=== PATIENT | female | born 1950 | race Caucasian/White ===

== ENCOUNTER 2017-10-08 10:15 | Emergency (ER) | payer MEDICARE, OTHER ==
[~2017-10-08] VITALS: Ht 162.6 cm; Wt 68.5 kg
[~2017-10-08 10:15] MED LIST: ALBUTEROL; AMIT50 PO; ASPI81EC PO; ATOR20 PO; Albuterol2.5 MG/0.5 INH; Aspirin EC81 MG PO; BENTYL20 MG PO; BENZ100A PO; BUDE.25; BUDE.5 NEB; CHOL10002 PO; CIPR500 PO; CLARITIN10 MG PO; CLOP75 PO; CREON DR 6,0001 EACH; CREON DR 6,0001 EACH PO; ERGO400 PO; FAMO20 PO; FLAV100 PO; GABA300 PO; GUAIFENESIN1200 MG PO; HYDR1TAB94 PO; IPRA.03NI; Ipratr-Albuterol3 ML IH; LEVSOD125 PO; LEVSOD150; LEVSOD150 PO; LORA10ER PO; MAGNESIUM; METO25 PO; METO25ER PO; METPHE20CR; MIRT15ST MM; MIRT30 PO; MODA200 PO; Magnesium Oxid500 MG PO; NITR.4SL SL; NITR.6SL; NYST100000; Nitrostat0.4 MG SL; Norco 5-325 Ta1 EACH PO; ONDA4 PO; ONDA4ODT; OXYB5 PO; OXYC10TA19 PO; OXYC5 PO; Omeprazole20 M1; PHENA200 PO; POTA10T PO; POTCHL10ER PO; PRAV20 PO; PRED10 PO; PRED20; PROM25 PO; PROM25S PR; Pravachol PO; Prednisone20 MG PO; Prilosec20 MG PO; Provigil PO; QVAR7.3 G1 IH; SYNTHROID0.2 MG PO; TIOT18 INH; TOPI50 PO; TRAM50 PO; Tussionex Penn480 ML PO; WARF5 PO
[2017-10-08 11:59] LABS: BASOPHILS ABSOLUTE AUTO 0.04 K/mm3 (0.00-0.23); BASOPHILS PERCENT AUTO 1 % (0-2); EOSINOPHILS ABSOLUTE AUTO 0.33 K/mm3 (0.00-0.68); EOSINOPHILS PERCENT AUTO 4 % (0-6); Hematocrit 44.2 % (33.0-51.0); Hemoglobin 13.8 g/dL (11.5-16.0); IMMATURE GRAN ABSOLUTE AUTO 0.01 K/mm3 (0.00-0.10); IMMATURE GRAN PERCENT AUTO 0 % (0-1); LYMPHOCYTES ABSOLUTE AUTO 2.34 K/mm3 (0.84-5.20); LYMPHOCYTES PERCENT AUTO 30 % (21-46); MONOCYTES ABSOLUTE AUTO 0.57 K/mm3 (0.16-1.47); MONOCYTES PERCENT AUTO 7 % (4-13); Mean Corpuscular HGB 29.8 pg (26.0-34.0); Mean Corpuscular HGB Conc 31.2 g/dL (31.5-36.5); Mean Corpuscular Volume 96 fL (80-100); Mean Platelet Volume 10.5 fL (9.1-12.4); NEUTROPHILS ABSOLUTE AUTO 4.56 K/mm3 (1.96-9.15); NEUTROPHILS PERCENT AUTO 58 % (41-73); Platelet Count 300 K/mm3 (150-400); RDW Coefficient Variation 13.8 % (11.7-14.2); RDW Standard Deviation 47.7 fL (35.1-46.3); Red Blood Cell Count 4.63 M/mm3 (3.80-5.20); White Blood Cell Count 7.85 K/mm3 (4.00-11.30)
[2017-10-08 12:10] LABS: Albumin, Blood 3.7 g/dL (3.4-5.0); Bilirubin, Total 0.3 mg/dL (0.1-1.0); Bun/Creatinine Ratio 17.6 (12.0-20.0); Calcium, Blood 8.7 mg/dL (8.5-10.1); Creatinine, Blood 1.02 mg/dL (0.40-1.00); Globulin, Blood 3.6 g/dL (2.2-4.0); Total Protein, Blood 7.3 g/dL (6.4-8.2)
[2018-07-16] MEDS ORDERED: IMDUR (15:31)
[2018-07-22] MEDS ORDERED: CEFU500T30 PO (12:22)
[2018-07-22] MEDS ORDERED: DOCU100 PO (12:23)
[2018-07-22] MEDS ORDERED: Fish Oil 10001000 MG PO (12:27)
[2018-07-22] MEDS ORDERED: ISOMON20 PO (12:28)
[2018-07-22] MEDS ORDERED: LACTOBACILLUS PO (12:30)
[2018-07-22] MEDS ORDERED: LEVSOD100 PO (12:32)
[2018-07-22] MEDS ORDERED: METO25ER PO (12:33)
[2018-07-22] MEDS ORDERED: PANT40 PO (12:36)
== END 2017-10-08 13:16 | disposition home or self-care (01) ==
LOC: ER 10:15
PROVIDERS: Physician Assistant
DX: Z03.89 Encounter for observation for other suspected diseases and conditions ruled out (principal); Z86.73 Personal history of transient ischemic attack (TIA), and cerebral infarction without residual deficits; Z88.5 Allergy status to narcotic agent; Z88.2 Allergy status to sulfonamides; Z88.8 Allergy status to other drugs, medicaments and biological substances; Z79.899 Other long term (current) drug therapy; Z79.82 Long term (current) use of aspirin; Z79.891 Long term (current) use of opiate analgesic; Z79.52 Long term (current) use of systemic steroids; J44.9 Chronic obstructive pulmonary disease, unspecified; E03.9 Hypothyroidism, unspecified
CPT/HCPCS: 36415; 70450; 80053; 84100; 84439; 84443; 85025; 93005; 93010; 99284

== ENCOUNTER 2017-10-18 10:50 | Emergency (ER) | payer MEDICARE, OTHER ==
[~2017-10-18] VITALS: Ht 162.6 cm; Wt 68.5 kg
[2017-10-18 11:30] LABS: BASOPHILS ABSOLUTE AUTO 0.07 K/mm3 (0.00-0.23); BASOPHILS PERCENT AUTO 1 % (0-2); EOSINOPHILS ABSOLUTE AUTO 0.36 K/mm3 (0.00-0.68); EOSINOPHILS PERCENT AUTO 5 % (0-6); Hematocrit 41.7 % (33.0-51.0); IMMATURE GRAN ABSOLUTE AUTO 0.03 K/mm3 (0.00-0.10); IMMATURE GRAN PERCENT AUTO 0 % (0-1); LYMPHOCYTES ABSOLUTE AUTO 1.89 K/mm3 (0.84-5.20); LYMPHOCYTES PERCENT AUTO 26 % (21-46); MONOCYTES ABSOLUTE AUTO 0.56 K/mm3 (0.16-1.47); MONOCYTES PERCENT AUTO 8 % (4-13); Mean Corpuscular HGB 29.5 pg (26.0-34.0); Mean Corpuscular HGB Conc 31.2 g/dL (31.5-36.5); Mean Corpuscular Volume 95 fL (80-100); Mean Platelet Volume 10.3 fL (9.1-12.4); NEUTROPHILS PERCENT AUTO 60 % (41-73); Platelet Count 245 K/mm3 (150-400); RDW Coefficient Variation 13.1 % (11.7-14.2); RDW Standard Deviation 45.4 fL (35.1-46.3); Red Blood Cell Count 4.41 M/mm3 (3.80-5.20); White Blood Cell Count 7.31 K/mm3 (4.00-11.30)
[2017-10-18 11:46] LABS: Alanine Aminotransfer (ALT/SGP 16 U/L (12-78); Albumin, Blood 3.5 g/dL (3.4-5.0); Alk Phos 116 U/L (50-136); Anion Gap 7 mmol/L (6-16); Aspartate Aminotrans (AST/SGOT 11 U/L (12-37); Bilirubin, Total 0.2 mg/dL (0.1-1.0); Blood Urea Nitrogen 20 mg/dL (8-24); Bun/Creatinine Ratio 21.2 (12.0-20.0); CO2, Blood 26 mmol/L (21-32); Calcium, Blood 8.6 mg/dL (8.5-10.1); Chloride, Blood 113 mmol/L (98-108); Creatinine, Blood 0.95 mg/dL (0.40-1.00); Globulin, Blood 3.5 g/dL (2.2-4.0); Glomerular Filtration Rate >60 (60-); Glucose, Blood 88 mg/dL (70-99); Potassium, Blood 3.4 mmol/L (3.5-5.5); Sodium, Blood 146 mmol/L (136-145)
[2017-10-18 13:53] LABS: Troponin I <0.015 ng/mL (0.000-0.040)
[2018-07-16] MEDS ORDERED: IMDUR (15:31)
[2018-07-22] MEDS ORDERED: CEFU500T30 PO (12:22)
[2018-07-22] MEDS ORDERED: DOCU100 PO (12:23)
[2018-07-22] MEDS ORDERED: Fish Oil 10001000 MG PO (12:27)
[2018-07-22] MEDS ORDERED: ISOMON20 PO (12:28)
[2018-07-22] MEDS ORDERED: LACTOBACILLUS PO (12:30)
[2018-07-22] MEDS ORDERED: LEVSOD100 PO (12:32)
[2018-07-22] MEDS ORDERED: METO25ER PO (12:33)
[2018-07-22] MEDS ORDERED: PANT40 PO (12:36)
== END 2017-10-18 14:59 | disposition home or self-care (01) ==
LOC: ER 10:50
PROVIDERS: Emergency Medicine
DX: R42 Dizziness and giddiness (principal); J44.9 Chronic obstructive pulmonary disease, unspecified; E03.9 Hypothyroidism, unspecified; Z88.5 Allergy status to narcotic agent; Z88.2 Allergy status to sulfonamides; Z88.8 Allergy status to other drugs, medicaments and biological substances; Z79.899 Other long term (current) drug therapy; Z79.82 Long term (current) use of aspirin; Z79.52 Long term (current) use of systemic steroids; Z95.5 Presence of coronary angioplasty implant and graft; Z95.1 Presence of aortocoronary bypass graft; Z90.710 Acquired absence of both cervix and uterus; Z90.49 Acquired absence of other specified parts of digestive tract; Z90.89 Acquired absence of other organs
CPT/HCPCS: 36415; 80053; 83690; 84484; 85025; 93005; 93010; 99283

== ENCOUNTER 2018-01-17 20:50 | Emergency (ER) | payer MEDICARE, OTHER ==
[~2018-01-17] VITALS: Ht 162.6 cm; Wt 68.0 kg
[~2018-01-17 20:50] MED LIST changes: -BUDE.25
[2018-01-17 21:03] LABS: BASOPHILS ABSOLUTE AUTO 0.05 K/mm3 (0.00-0.23); BASOPHILS PERCENT AUTO 1 % (0-2); EOSINOPHILS ABSOLUTE AUTO 0.26 K/mm3 (0.00-0.68); EOSINOPHILS PERCENT AUTO 3 % (0-6); Hematocrit 41.1 % (33.0-51.0); Hemoglobin 12.8 g/dL (11.5-16.0); IMMATURE GRAN ABSOLUTE AUTO 0.03 K/mm3 (0.00-0.10); IMMATURE GRAN PERCENT AUTO 0 % (0-1); LYMPHOCYTES ABSOLUTE AUTO 2.17 K/mm3 (0.84-5.20); LYMPHOCYTES PERCENT AUTO 23 % (21-46); MONOCYTES ABSOLUTE AUTO 0.59 K/mm3 (0.16-1.47); MONOCYTES PERCENT AUTO 6 % (4-13); Mean Corpuscular HGB Conc 31.1 g/dL (31.5-36.5); Mean Corpuscular Volume 93 fL (80-100); Mean Platelet Volume 9.8 fL (9.1-12.4); NEUTROPHILS ABSOLUTE AUTO 6.46 K/mm3 (1.96-9.15); NEUTROPHILS PERCENT AUTO 68 % (41-73); Platelet Count 325 K/mm3 (150-400); RDW Coefficient Variation 13.5 % (11.7-14.2); RDW Standard Deviation 46.3 fL (35.1-46.3); Red Blood Cell Count 4.41 M/mm3 (3.80-5.20); White Blood Cell Count 9.56 K/mm3 (4.00-11.30)
[2018-01-17 21:17] LABS: International Normalized Ratio 0.98; Prothrombin Time Results 10.2 Sec (9.7-11.5)
[2018-01-17 21:21] LABS: Alanine Aminotransfer (ALT/SGP 13 U/L (12-78); Albumin, Blood 3.5 g/dL (3.4-5.0); Albumin/Globulin Ratio 0.9 (0.8-1.8); Alk Phos 96 U/L (50-136); Anion Gap 9 mmol/L (6-16); Aspartate Aminotrans (AST/SGOT 12 U/L (12-37); Bilirubin, Total 0.4 mg/dL (0.1-1.0); Blood Urea Nitrogen 16 mg/dL (8-24); Bun/Creatinine Ratio 18.6 (12.0-20.0); CO2, Blood 20 mmol/L (21-32); Calcium, Blood 7.6 mg/dL (8.5-10.1); Chloride, Blood 121 mmol/L (98-108); Creatinine, Blood 0.86 mg/dL (0.40-1.00); Ethanol (Alcohol), Blood, Med <3 mg/dL; Globulin, Blood 3.9 g/dL (2.2-4.0); Glomerular Filtration Rate >60 (60-); Glucose, Blood 124 mg/dL (70-99); Potassium, Blood 3.5 mmol/L (3.5-5.5); Sodium, Blood 150 mmol/L (136-145); Total Protein, Blood 7.4 g/dL (6.4-8.2)
[2018-01-17 22:55] LABS: Source, Urine Clean Catch
[2018-01-17 22:57] LABS: Blood, Urine Neg (Neg); Glucose Qualitative, Urine Neg (Neg); Ketones, Urine Neg (Neg); Leukocyte Esterase, Urine Neg (Neg); Nitrite, Urine Pos (Neg); Protein, Urine 1+ (Neg); Specific Gravity, Urine 1.015 (1.003-1.022); Urobilinogen, Urine 3+ (Normal)
[2018-01-17 23:02] LABS: Appearance, Urine Clear (Clear); Bilirubin, Urine 3+ (Neg); Color, Urine Orange (P-Yellow)
[2018-01-17 23:03] LABS: Bacteria Many /hpf; Red Blood Cells, Urine 0-2 /hpf (0-2); Squamous Epithelial Cells Not Seen /hpf (Few)
[2018-01-17 23:46] LABS: U Amphetamine Screen Not Detected; U Barbituate Screen Not Detected; U Benzodiazapine Screen Not Detected; U Buprenorphine Screen Not Detected; U Cannabinoids Screen Not Detected; U Cocaine Screen Not Detected; U Methadone Screen Not Detected; U Methamphetamine Screen Not Detected; U Opiates Screen Not Detected; U Oxycodone Screen Not Detected; U Phencyclidine Screen Not Detected; U Propoxyphene Screen Not Detected
== END 2018-01-18 02:10 | disposition short-term general hospital (02) ==
LOC: ER 20:50
PROVIDERS: Emergency Medicine
DX: S06.5X9A Traumatic subdural hemorrhage with loss of consciousness of unspecified duration, initial encounter (principal); S06.6X9A Traumatic subarachnoid hemorrhage with loss of consciousness of unspecified duration, initial encounter; S61.412A Laceration without foreign body of left hand, initial encounter; S01.01XA Laceration without foreign body of scalp, initial encounter; S80.212A Abrasion, left knee, initial encounter; S00.81XA Abrasion of other part of head, initial encounter; J44.9 Chronic obstructive pulmonary disease, unspecified; E03.9 Hypothyroidism, unspecified; Z88.5 Allergy status to narcotic agent; Z88.2 Allergy status to sulfonamides; Z88.8 Allergy status to other drugs, medicaments and biological substances; Z79.899 Other long term (current) drug therapy; Z79.82 Long term (current) use of aspirin; Z79.52 Long term (current) use of systemic steroids; W55.12XA Struck by horse, initial encounter
CPT/HCPCS: 12002; 36430; 70450; 71045; 71260; 72125; 72170; 73080; 73130; 73562-LT; 74177; 80053; 81001; 83690; 85025; 85610; 85730; 86850; 86900; 86901; 90714; 96361; 96374; 96375; 96376; 99285; G0480; J2405; J3010; J7030; P9035; Q9967

== ENCOUNTER 2018-02-21 12:07 | Emergency (ER) | payer MEDICARE, OTHER ==
[~2018-02-21] VITALS: Ht 162.6 cm; Wt 68.0 kg
== END 2018-02-21 14:30 | disposition home or self-care (01) ==
LOC: ER 12:07
DX: S52.501D Unspecified fracture of the lower end of right radius, subsequent encounter for closed fracture with routine healing (principal); J44.9 Chronic obstructive pulmonary disease, unspecified; E03.9 Hypothyroidism, unspecified; I25.10 Atherosclerotic heart disease of native coronary artery without angina pectoris; Z88.5 Allergy status to narcotic agent; Z88.2 Allergy status to sulfonamides; Z88.8 Allergy status to other drugs, medicaments and biological substances; Z79.899 Other long term (current) drug therapy; Z79.82 Long term (current) use of aspirin

== ENCOUNTER → 2018-09-11 | Outpatient (CLI) | payer MEDICARE, OTHER ==
[~2018-09-11] MED LIST changes: +BUDE.25; +CEFU500T30 PO; +DOCU100 PO; +Fish Oil 10001000 MG PO; +IMDUR; +ISOMON20 PO; +LACTOBACILLUS PO; +LEVSOD100 PO; +PANT40 PO
== END ==
LOC: LAB SHORT 15:48 → LAB 15:48
DX: E03.9 Hypothyroidism, unspecified (principal)
CPT/HCPCS: 84443

== ENCOUNTER 2018-11-09 18:06 | Inpatient (IN) | payer MEDICARE, OTHER ==
[~2018-11-09] VITALS: Ht 157.5 cm; Wt 66.4 kg
[~2018-11-09 18:06] MED LIST changes: +ACIDOPHILUS1 EACH PO; -BUDE.25; +BUDE.25 INH; -LACTOBACILLUS PO
[2018-11-09 19:02] LABS: BASOPHILS ABSOLUTE AUTO 0.07 K/mm3 (0.00-0.23); BASOPHILS PERCENT AUTO 1 % (0-2); EOSINOPHILS ABSOLUTE AUTO 0.26 K/mm3 (0.00-0.68); EOSINOPHILS PERCENT AUTO 2 % (0-6); Hematocrit 45.2 % (33.0-51.0); Hemoglobin 13.7 g/dL (11.5-16.0); IMMATURE GRAN ABSOLUTE AUTO 0.06 K/mm3 (0.00-0.10); IMMATURE GRAN PERCENT AUTO 0 % (0-1); LYMPHOCYTES ABSOLUTE AUTO 2.21 K/mm3 (0.84-5.20); LYMPHOCYTES PERCENT AUTO 15 % (21-46); MONOCYTES PERCENT AUTO 4 % (4-13); Mean Corpuscular HGB 28.5 pg (26.0-34.0); Mean Corpuscular HGB Conc 30.3 g/dL (31.5-36.5); Mean Corpuscular Volume 94 fL (80-100); Mean Platelet Volume 9.5 fL (9.1-12.4); NEUTROPHILS ABSOLUTE AUTO 12.04 K/mm3 (1.96-9.15); NEUTROPHILS PERCENT AUTO 79 % (41-73); Platelet Count 588 K/mm3 (150-400); RDW Coefficient Variation 15.3 % (11.7-14.2); RDW Standard Deviation 52.8 fL (35.1-46.3); White Blood Cell Count 15.24 K/mm3 (4.00-11.30)
[2018-11-09 19:23] LABS: Alanine Aminotransfer (ALT/SGP 13 U/L (12-78); Albumin, Blood 3.1 g/dL (3.4-5.0); Albumin/Globulin Ratio 0.6 (0.8-1.8); Alk Phos 123 U/L (50-136); Anion Gap 9 mmol/L (6-16); Aspartate Aminotrans (AST/SGOT 12 U/L (12-37); Bilirubin, Total 0.4 mg/dL (0.1-1.0); Blood Urea Nitrogen 11 mg/dL (8-24); Bun/Creatinine Ratio 13.5 (12.0-20.0); CO2, Blood 24 mmol/L (21-32); Calcium, Blood 8.7 mg/dL (8.5-10.1); Chloride, Blood 108 mmol/L (98-108); Creatinine, Blood 0.82 mg/dL (0.40-1.00); Glomerular Filtration Rate >60 (60-); Glucose, Blood 111 mg/dL (70-99); Potassium, Blood 3.8 mmol/L (3.5-5.5); Sodium, Blood 141 mmol/L (136-145); Total Protein, Blood 8.1 g/dL (6.4-8.2); Troponin I <0.015 ng/mL (0.000-0.040)
--- NOTE | 2018-11-10 05:10 | NUR ---
SHIFT SUMMARY PT HAD NO ISSUES OR COMPLAINTS. PT HAS SLEPT FOR MOST OF SHIFT. PT IS CURRENTLY SLEEPING AND BREATHING EASY.
[2018-11-10 05:46] LABS: BASOPHILS ABSOLUTE AUTO 0.04 K/mm3 (0.00-0.23); BASOPHILS PERCENT AUTO 0 % (0-2); EOSINOPHILS ABSOLUTE AUTO 0.01 K/mm3 (0.00-0.68); EOSINOPHILS PERCENT AUTO 0 % (0-6); Hematocrit 39.1 % (33.0-51.0); IMMATURE GRAN ABSOLUTE AUTO 0.05 K/mm3 (0.00-0.10); IMMATURE GRAN PERCENT AUTO 1 % (0-1); LYMPHOCYTES ABSOLUTE AUTO 1.16 K/mm3 (0.84-5.20); LYMPHOCYTES PERCENT AUTO 12 % (21-46); MONOCYTES ABSOLUTE AUTO 0.15 K/mm3 (0.16-1.47); MONOCYTES PERCENT AUTO 2 % (4-13); Mean Corpuscular HGB 28.6 pg (26.0-34.0); Mean Corpuscular HGB Conc 30.7 g/dL (31.5-36.5); Mean Corpuscular Volume 93 fL (80-100); Mean Platelet Volume 9.8 fL (9.1-12.4); NEUTROPHILS PERCENT AUTO 86 % (41-73); Platelet Count 440 K/mm3 (150-400); RDW Coefficient Variation 15.5 % (11.7-14.2); RDW Standard Deviation 52.4 fL (35.1-46.3); White Blood Cell Count 9.81 K/mm3 (4.00-11.30)
--- NOTE | 2018-11-10 18:38 | NUR ---
SHIFT SUMMARY PATIENT FULLY A&O, UP AL. PATIENT DOES ADMIT TO RECENT FALLS IN BATHROOM WHILE SHE WAS AT HOME. SHE STATED SHE WAS ABLE TO PICK HERSELF UP OFF FLOOR BY HERSELF WITHOUT ASSISTANCE. SHE HAS CHRONIC CHEST PAIN AND ACUTE RIGHT RIB PAIN WHILE TAKING DEEP BREATH OR COUGHING. COUGH IS VERY TIGHT AND NOT PRODICTIVE. I ASKED PATIENT TO CALL FOR ASSISTANCE TO GET OUT OF BED TO BATHROOM BUT PATIENT REFUSED TO HAVE BED ALARM ON DURING DAY SHIFT 11/10. PATIENT IS FULLY A&O AND PROMISED THAT SHE WOULD MOVE SLOWLY AND CALL FOR HELP IF SHE FELT WEAK OR UNSTEADY AT ALL.
[2018-11-11 05:01] LABS: BASOPHILS ABSOLUTE AUTO 0.08 K/mm3 (0.00-0.23); BASOPHILS PERCENT AUTO 1 % (0-2); EOSINOPHILS ABSOLUTE AUTO 0.05 K/mm3 (0.00-0.68); EOSINOPHILS PERCENT AUTO 0 % (0-6); Hematocrit 32.6 % (33.0-51.0); Hemoglobin 9.8 g/dL (11.5-16.0); IMMATURE GRAN PERCENT AUTO 1 % (0-1); LYMPHOCYTES ABSOLUTE AUTO 3.74 K/mm3 (0.84-5.20); LYMPHOCYTES PERCENT AUTO 23 % (21-46); MONOCYTES ABSOLUTE AUTO 0.88 K/mm3 (0.16-1.47); MONOCYTES PERCENT AUTO 6 % (4-13); Mean Corpuscular HGB 28.5 pg (26.0-34.0); Mean Corpuscular HGB Conc 30.1 g/dL (31.5-36.5); Mean Corpuscular Volume 95 fL (80-100); Mean Platelet Volume 9.8 fL (9.1-12.4); NEUTROPHILS ABSOLUTE AUTO 11.11 K/mm3 (1.96-9.15); NEUTROPHILS PERCENT AUTO 70 % (41-73); Platelet Count 393 K/mm3 (150-400); RDW Coefficient Variation 15.9 % (11.7-14.2); RDW Standard Deviation 54.6 fL (35.1-46.3); Red Blood Cell Count 3.44 M/mm3 (3.80-5.20); White Blood Cell Count 15.96 K/mm3 (4.00-11.30)
[2018-11-11 05:43] LABS: Calcium, Blood 8.7 mg/dL (8.5-10.1); Creatinine, Blood 1.06 mg/dL (0.40-1.00); Potassium, Blood 3.9 mmol/L (3.5-5.5)
--- NOTE | 2018-11-11 06:08 | NUR ---
Rn summary: Patient is alert and oriented. Pt has been on 2 liters of O2 this shift, breath sounds are course with exp wheezing throughout. Pt has had harsh tight nonproductive cough. Robitussin given x2 with good relief. Pt has been able to rest 2nd half of shift. New IV site to right upper arm per charge nurse. Pt medicated with Ultram at bedtime for rib pain from coughing and chronic anginal pain. Pt does have some stress incontinence and is wearing briefs. Pt is up to BR with SBA, she is in isolation for ESBL in urine. Call light in reach, pt is able to use appropriately.
--- NOTE | 2018-11-11 11:45 | NUR ---
GAINED PERMISSION ON 11.11.18 TO CARE FOR PATIENT 11.12.18
--- NOTE | 2018-11-11 15:42 | NUR ---
SHIFT SUMMARY PATIENT A&O X4. C/O OF PAIN WITH COUGHING. DENIES ANY SOB. MEDICATED FOR COUGH X 2 THIS SHIFT AND NAUSEA X1. HAS BEEN RESTING THROUGHOUT THE SHIFT. BED IS IN THE LOWEST POSITION, CALL LIGHT WITHIN REACH. NO ACUTE CHANGES. RN WILL CONTINUE TO MONITOR.
[2018-11-11] MEDS ORDERED: AZIT250 PO (16:23)
--- NOTE | 2018-11-11 17:23 | NUR ---
DISCHARGE INSTRUCTIONS REVIEWED WITH PT AND FAMILY MEMBER, IV DC'D INTACT. PT ESCORTED OUT VIA W/C TO D/C HOME AT 1705.
--- NOTE | 2018-11-11 18:21 | NUR ---
vega spoke excitedly and at length about her dogs, going to dog shows, her miniature horses, and her active life. She is very happy and is confident about her health improving. She has a strong elizabeth and was appreciative of prayer and encouragement.
== END 2018-11-11 17:05 | disposition home or self-care (01) | DRG 871 ==
LOC: ER 18:06 → MEDS 20:14 → ER 22:11 → ENPENDDIS 11-11 10:37 → MEDS 11-11 17:05
PROVIDERS: Hospitalist; Physician Assistant; ADMIT Hospitalist
DX: A41.9 Sepsis, unspecified organism (principal); J18.9 Pneumonia, unspecified organism; J44.1 Chronic obstructive pulmonary disease with (acute) exacerbation; J44.0 Chronic obstructive pulmonary disease with (acute) lower respiratory infection; I25.10 Atherosclerotic heart disease of native coronary artery without angina pectoris; F32.9 Major depressive disorder, single episode, unspecified; F41.9 Anxiety disorder, unspecified; E03.9 Hypothyroidism, unspecified; K21.9 Gastro-esophageal reflux disease without esophagitis; M79.7 Fibromyalgia; R91.8 Other nonspecific abnormal finding of lung field; Z95.1 Presence of aortocoronary bypass graft; Z88.5 Allergy status to narcotic agent; Z88.2 Allergy status to sulfonamides; Z88.8 Allergy status to other drugs, medicaments and biological substances; Z79.02 Long term (current) use of antithrombotics/antiplatelets; Z79.82 Long term (current) use of aspirin; Z79.899 Other long term (current) drug therapy
CPT/HCPCS: 36415; 71046; 71250; 80048; 80053; 83605; 83880; 84484; 85025; 87040; 93005; 93010; 94640; 94760; 94762; 96365; 96366; 96367; 99285-25; J0456; J0696; J1650; J7030; J7050

== ENCOUNTER → 2018-12-16 | Outpatient (CLI) | payer MEDICARE, OTHER ==
[~2018-12-16] MED LIST changes: +AZIT250 PO
== END | disposition home or self-care (01) ==
LOC: LAB SHORT 11:09 → LAB 11:09
DX: R91.8 Other nonspecific abnormal finding of lung field (principal)
CPT/HCPCS: 87070; 87205

== ENCOUNTER 2019-09-15 13:18 | Emergency (ER) | payer MEDICARE ==
[~2019-09-15] VITALS: Ht 157.5 cm; Wt 70.8 kg
[2019-09-15 15:30] LABS: Calcium, Ionized (POC) 1.25 mmol/L (1.10-1.46); Chloride (POC) 109 mmol/L (98-108); Creatinine (POC) 1.5 mg/dL (0.6-1.0); Glucose (ISTAT POC) 147 mg/dL (70-99); Hemoglobin (POC) 13.9 g/dL (12.0-16.0); Potassium (POC) 3.5 mmol/L (3.5-5.5); Sodium (POC) 142 mmol/L (135-148); Total CO2 (POC) 21 mmol/L (21-32)
[2019-09-15] MEDS ORDERED: Ultram50 MG PO (18:01)
== END 2019-09-15 18:13 | disposition home or self-care (01) ==
LOC: ER 13:18
DX: S20.212A Contusion of left front wall of thorax, initial encounter (principal); E03.9 Hypothyroidism, unspecified; M79.7 Fibromyalgia; J44.9 Chronic obstructive pulmonary disease, unspecified; Z88.5 Allergy status to narcotic agent; Z88.2 Allergy status to sulfonamides; Z88.8 Allergy status to other drugs, medicaments and biological substances; Z79.82 Long term (current) use of aspirin; Z79.899 Other long term (current) drug therapy; W01.198A Fall on same level from slipping, tripping and stumbling with subsequent striking against other object, initial encounter; Z79.51 Long term (current) use of inhaled steroids
CPT/HCPCS: 36415; 71101; 71260; 80047; 85014; 93005; 93010; 99284-25; Q9967

== ENCOUNTER 2019-09-29 18:48 | Emergency (ER) | payer MEDICARE, OTHER ==
[~2019-09-29] VITALS: Ht 157.5 cm; Wt 69.0 kg
[~2019-09-29 18:48] MED LIST changes: +Ultram50 MG PO
[2019-09-29] MEDS ORDERED: TRAM50 PO (19:44)
[2019-09-29] MEDS ORDERED: CREON DR 12,001 EACH PO (19:44)
[2019-09-29] MEDS ORDERED: Colace100 MG PO (20:35)
== END 2019-09-29 20:53 | disposition home or self-care (01) ==
LOC: ER 18:48
DX: K59.00 Constipation, unspecified (principal); Z88.5 Allergy status to narcotic agent; Z88.2 Allergy status to sulfonamides; Z88.1 Allergy status to other antibiotic agents; Z88.8 Allergy status to other drugs, medicaments and biological substances; Z79.891 Long term (current) use of opiate analgesic; Z79.899 Other long term (current) drug therapy; Z79.82 Long term (current) use of aspirin; J44.9 Chronic obstructive pulmonary disease, unspecified; E03.9 Hypothyroidism, unspecified
CPT/HCPCS: 74018; 99283-25

== ENCOUNTER 2020-01-20 19:04 | Emergency (ER) | payer MEDICARE ==
[~2020-01-20] VITALS: Ht 157.5 cm; Wt 70.3 kg
[~2020-01-20 19:04] MED LIST changes: +CREON DR 12,001 EACH PO; +Colace100 MG PO
[2020-01-20] MEDS ORDERED: Norco 5-325 Ta1 EACH PO (20:54)
== END 2020-01-20 21:15 | disposition home or self-care (01) ==
LOC: ER 19:04
DX: M17.12 Unilateral primary osteoarthritis, left knee (principal); J44.9 Chronic obstructive pulmonary disease, unspecified; E03.9 Hypothyroidism, unspecified; N18.9 Chronic kidney disease, unspecified; Z91.048 Other nonmedicinal substance allergy status; Z88.5 Allergy status to narcotic agent; Z88.2 Allergy status to sulfonamides; Z88.8 Allergy status to other drugs, medicaments and biological substances; Z79.899 Other long term (current) drug therapy; Z79.02 Long term (current) use of antithrombotics/antiplatelets; Z79.82 Long term (current) use of aspirin
CPT/HCPCS: 73564; 99283-25; A9270

== ENCOUNTER → 2020-03-21 | Outpatient (CLI) | payer MEDICARE ==
[2020-03-21 19:42] LABS: BASOPHILS ABSOLUTE AUTO 0.05 K/mm3 (0.00-0.23); BASOPHILS PERCENT AUTO 1 % (0-2); EOSINOPHILS ABSOLUTE AUTO 0.24 K/mm3 (0.00-0.68); EOSINOPHILS PERCENT AUTO 3 % (0-6); Hematocrit 40.1 % (33.0-51.0); Hemoglobin 11.6 g/dL (11.5-16.0); IMMATURE GRAN ABSOLUTE AUTO 0.08 K/mm3 (0.00-0.10); IMMATURE GRAN PERCENT AUTO 1 % (0-1); LYMPHOCYTES ABSOLUTE AUTO 2.28 K/mm3 (0.84-5.20); LYMPHOCYTES PERCENT AUTO 23 % (21-46); MONOCYTES PERCENT AUTO 8 % (4-13); Mean Corpuscular HGB 27.8 pg (26.0-34.0); Mean Corpuscular HGB Conc 28.9 g/dL (31.5-36.5); Mean Corpuscular Volume 96 fL (80-100); Mean Platelet Volume 10.7 fL (9.1-12.4); NEUTROPHILS ABSOLUTE AUTO 6.32 K/mm3 (1.96-9.15); NEUTROPHILS PERCENT AUTO 65 % (41-73); Platelet Count 360 K/mm3 (150-400); RDW Coefficient Variation 16.8 % (11.7-14.2); RDW Standard Deviation 60.1 fL (35.1-46.3); Red Blood Cell Count 4.17 M/mm3 (3.80-5.20); White Blood Cell Count 9.77 K/mm3 (4.00-11.30)
== END | disposition home or self-care (01) ==
LOC: LAB 17:53 → LAB SHORT 17:53
PROVIDERS: Internal Medicine Hematology & Oncology
DX: D50.9 Iron deficiency anemia, unspecified (principal); D51.8 Other vitamin B12 deficiency anemias
CPT/HCPCS: 82607; 82746; 85025

== ENCOUNTER 2020-04-07 07:45 | Day surgery (SDC) | payer MEDICARE ==
[~2020-04-07] VITALS: Ht 157.5 cm; Wt 73.9 kg
[2020-04-07] MEDS ORDERED: RANO500T PO (08:29)
[2020-04-07] MEDS ORDERED: LISI20 PO (08:31)
--- NOTE | 2020-04-07 08:38 | NUR ---
04/07/20 0838 Dulce Maria Medina 2 IV MISSES. 1 IN RIGHT WRIST. 1 IN RIGHT FOREARM BOTH HIT VALVES. ATTEMPT #3 HAS GOOD IV IN LEFT HAND.
[2020-04-19] MEDS ORDERED: Zithromax250 MG PO (21:27)
== END 2020-04-07 10:20 | disposition home or self-care (01) ==
LOC: ORSCSDS 07:45
PROVIDERS: Internal Medicine Gastroenterology
PROC: 0DJD8ZZ Inspection of Lower Intestinal Tract, Via Natural or Artificial Opening Endoscopic (ICD-10-PCS; principal; 2020-04-07 08:45)
DX: D50.9 Iron deficiency anemia, unspecified (principal); K64.8 Other hemorrhoids; Z86.010 Personal history of colon polyps; I25.10 Atherosclerotic heart disease of native coronary artery without angina pectoris; I10 Essential (primary) hypertension; E78.5 Hyperlipidemia, unspecified; E11.9 Type 2 diabetes mellitus without complications; E03.9 Hypothyroidism, unspecified; J44.9 Chronic obstructive pulmonary disease, unspecified; M79.7 Fibromyalgia; Z86.718 Personal history of other venous thrombosis and embolism; Z79.01 Long term (current) use of anticoagulants; Z79.82 Long term (current) use of aspirin; Z79.899 Other long term (current) drug therapy
CPT/HCPCS: J2704; J7120

== ENCOUNTER → 2020-04-18 | Outpatient (CLI) | payer MEDICARE ==
[~2020-04-18] MED LIST changes: +LISI20 PO; +RANO500T PO; +Zithromax250 MG PO
== END ==
LOC: LAB 14:08 → LAB SHORT 14:08
DX: J44.9 Chronic obstructive pulmonary disease, unspecified (principal)
CPT/HCPCS: 87070; 87077; 87185; 87205

== ENCOUNTER 2020-05-21 11:44 | Emergency (ER) | payer MEDICARE ==
[~2020-05-21] VITALS: Ht 157.5 cm; Wt 77.1 kg
[2020-05-21 12:28] LABS: Source, Urine Clean Catch
[2020-05-21 12:31] LABS: Blood, Urine 2+ (Neg); Glucose Qualitative, Urine Neg (Neg); Ketones, Urine 1+ (Neg); Leukocyte Esterase, Urine 3+ (Neg); Nitrite, Urine Pos (Neg); Protein, Urine 2+ (Neg); Urobilinogen, Urine 1+ (Normal)
[2020-05-21 12:39] LABS: Bun/Creatinine Ratio 24.4 (12.0-20.0); Creatinine, Blood 1.35 mg/dL (0.40-1.00); Potassium, Blood 3.7 mmol/L (3.5-5.5)
[2020-05-21 12:54] LABS: Appearance, Urine Hazy (Clear); Bilirubin, Urine 1+ (Neg); Color, Urine Amber (P-Yellow)
[2020-05-21 13:01] LABS: Bacteria Many /hpf; Squamous Epithelial Cells Few /hpf (Few)
[2020-05-21 13:46] LABS: BASOPHILS ABSOLUTE AUTO 0.04 K/mm3 (0.00-0.23); BASOPHILS PERCENT AUTO 0 % (0-2); EOSINOPHILS ABSOLUTE AUTO 0.02 K/mm3 (0.00-0.68); EOSINOPHILS PERCENT AUTO 0 % (0-6); Hematocrit 33.6 % (33.0-51.0); Hemoglobin 10.3 g/dL (11.5-16.0); IMMATURE GRAN ABSOLUTE AUTO 0.19 K/mm3 (0.00-0.10); IMMATURE GRAN PERCENT AUTO 1 % (0-1); LYMPHOCYTES ABSOLUTE AUTO 1.16 K/mm3 (0.84-5.20); LYMPHOCYTES PERCENT AUTO 7 % (21-46); MONOCYTES ABSOLUTE AUTO 0.82 K/mm3 (0.16-1.47); MONOCYTES PERCENT AUTO 5 % (4-13); Mean Corpuscular HGB 29.8 pg (26.0-34.0); Mean Corpuscular HGB Conc 30.7 g/dL (31.5-36.5); Mean Corpuscular Volume 97 fL (80-100); Mean Platelet Volume 10.6 fL (9.1-12.4); NEUTROPHILS ABSOLUTE AUTO 13.89 K/mm3 (1.96-9.15); NEUTROPHILS PERCENT AUTO 86 % (41-73); Platelet Count 257 K/mm3 (150-400); RDW Coefficient Variation 16.5 % (11.7-14.2); RDW Standard Deviation 58.8 fL (35.1-46.3); Red Blood Cell Count 3.46 M/mm3 (3.80-5.20); White Blood Cell Count 16.12 K/mm3 (4.00-11.30)
== END 2020-05-21 15:47 | disposition short-term general hospital (02) ==
LOC: ER 11:44
PROVIDERS: Emergency Medicine
DX: N13.6 Pyonephrosis (principal); J44.9 Chronic obstructive pulmonary disease, unspecified; E03.9 Hypothyroidism, unspecified; N18.9 Chronic kidney disease, unspecified; Z88.8 Allergy status to other drugs, medicaments and biological substances; Z88.5 Allergy status to narcotic agent; Z88.2 Allergy status to sulfonamides; Z88.1 Allergy status to other antibiotic agents; Z79.02 Long term (current) use of antithrombotics/antiplatelets; Z79.82 Long term (current) use of aspirin; Z79.899 Other long term (current) drug therapy; Z79.51 Long term (current) use of inhaled steroids; Z95.1 Presence of aortocoronary bypass graft; Z95.5 Presence of coronary angioplasty implant and graft; Z20.828 Contact with and (suspected) exposure to other viral communicable diseases
CPT/HCPCS: 36415; 74176; 80048; 81001; 85025; 87077; 87086; 87186; 96361; 96365; 96375; 96376; 99284-25; J0696; J2405; J2550; J3010; J7030; U0002

== ENCOUNTER 2020-05-28 16:26 | Emergency (ER) | payer MEDICARE ==
[~2020-05-28] VITALS: Ht 157.5 cm; Wt 73.5 kg
[2020-05-28 17:05] LABS: Source, Urine Clean Catch
[2020-05-28 17:10] LABS: Appearance, Urine Cloudy (Clear); Blood, Urine 5+ (Neg); Color, Urine Amber (P-Yellow); Glucose Qualitative, Urine Neg (Neg); Ketones, Urine Neg (Neg); Leukocyte Esterase, Urine 3+ (Neg); Nitrite, Urine Pos (Neg); Protein, Urine 2+ (Neg); Specific Gravity, Urine 1.005 (1.003-1.022); Urobilinogen, Urine 2+ (Normal)
[2020-05-28 17:22] LABS: Bilirubin, Urine 1+ (Neg)
[2020-05-28 17:24] LABS: BASOPHILS ABSOLUTE AUTO 0.04 K/mm3 (0.00-0.23); BASOPHILS PERCENT AUTO 0 % (0-2); EOSINOPHILS ABSOLUTE AUTO 0.21 K/mm3 (0.00-0.68); EOSINOPHILS PERCENT AUTO 2 % (0-6); Hematocrit 39.1 % (33.0-51.0); Hemoglobin 11.9 g/dL (11.5-16.0); IMMATURE GRAN ABSOLUTE AUTO 0.14 K/mm3 (0.00-0.10); IMMATURE GRAN PERCENT AUTO 2 % (0-1); LYMPHOCYTES ABSOLUTE AUTO 1.81 K/mm3 (0.84-5.20); LYMPHOCYTES PERCENT AUTO 19 % (21-46); MONOCYTES PERCENT AUTO 6 % (4-13); Mean Corpuscular HGB Conc 30.4 g/dL (31.5-36.5); Mean Corpuscular Volume 95 fL (80-100); NEUTROPHILS ABSOLUTE AUTO 6.69 K/mm3 (1.96-9.15); NEUTROPHILS PERCENT AUTO 71 % (41-73); RDW Coefficient Variation 15.9 % (11.7-14.2); RDW Standard Deviation 56.5 fL (35.1-46.3); Red Blood Cells, Urine TNTC /hpf (0-2); Squamous Epithelial Cells Few /hpf (Few); White Blood Cell Count 9.49 K/mm3 (4.00-11.30)
[2020-05-28 17:25] LABS: Bacteria Few /hpf
[2020-05-28 17:27] LABS: Anion Gap 6 mmol/L (6-16); Blood Urea Nitrogen 14 mg/dL (8-24); Bun/Creatinine Ratio 14.8 (12.0-20.0); CO2, Blood 22 mmol/L (21-32); Calcium, Blood 8.5 mg/dL (8.5-10.1); Chloride, Blood 113 mmol/L (98-108); Creatinine, Blood 0.95 mg/dL (0.40-1.00); Glomerular Filtration Rate >60 (60-); Glucose, Blood 112 mg/dL (70-99); Potassium, Blood 3.9 mmol/L (3.5-5.5); Sodium, Blood 141 mmol/L (136-145)
[2020-05-28 17:32] LABS: Mean Platelet Volume 10.5 fL (9.1-12.4); Platelet Count 324 K/mm3 (150-400)
[2020-05-28] MEDS ORDERED: ONDA4ODT SL (19:16)
[2020-05-28] MEDS ORDERED: KEFLEX500 MG PO (19:16)
[2020-05-28] MEDS ORDERED: Percocet 5-3251 EACH PO (19:16)
== END 2020-05-28 19:31 | disposition home or self-care (01) ==
LOC: ER 16:26
PROVIDERS: Physician Assistant
DX: S00.83XA Contusion of other part of head, initial encounter (principal); N39.0 Urinary tract infection, site not specified; N20.0 Calculus of kidney; Z88.2 Allergy status to sulfonamides; Z88.5 Allergy status to narcotic agent; Z88.8 Allergy status to other drugs, medicaments and biological substances; Z79.82 Long term (current) use of aspirin; Z79.899 Other long term (current) drug therapy; J44.9 Chronic obstructive pulmonary disease, unspecified; E03.9 Hypothyroidism, unspecified; N18.9 Chronic kidney disease, unspecified; W22.8XXA Striking against or struck by other objects, initial encounter
CPT/HCPCS: 36415; 70450; 80048; 81001; 85025; 87077; 87086; 87186; 99284-25; A9270; A9270-GY

== ENCOUNTER 2020-06-02 16:36 | Emergency (ER) | payer MEDICARE ==
[~2020-06-02] VITALS: Ht 157.5 cm; Wt 74.8 kg
[~2020-06-02 16:36] MED LIST changes: +KEFLEX500 MG PO; +ONDA4ODT SL; +Percocet 5-3251 EACH PO
[2020-06-02 17:03] LABS: BASOPHILS ABSOLUTE AUTO 0.06 K/mm3 (0.00-0.23); BASOPHILS PERCENT AUTO 1 % (0-2); EOSINOPHILS ABSOLUTE AUTO 0.22 K/mm3 (0.00-0.68); EOSINOPHILS PERCENT AUTO 3 % (0-6); Hematocrit 35.6 % (33.0-51.0); Hemoglobin 10.7 g/dL (11.5-16.0); IMMATURE GRAN ABSOLUTE AUTO 0.02 K/mm3 (0.00-0.10); IMMATURE GRAN PERCENT AUTO 0 % (0-1); LYMPHOCYTES ABSOLUTE AUTO 1.81 K/mm3 (0.84-5.20); LYMPHOCYTES PERCENT AUTO 21 % (21-46); MONOCYTES ABSOLUTE AUTO 0.88 K/mm3 (0.16-1.47); MONOCYTES PERCENT AUTO 10 % (4-13); Mean Corpuscular HGB 29.7 pg (26.0-34.0); Mean Corpuscular HGB Conc 30.1 g/dL (31.5-36.5); Mean Corpuscular Volume 99 fL (80-100); Mean Platelet Volume 10.1 fL (9.1-12.4); NEUTROPHILS ABSOLUTE AUTO 5.45 K/mm3 (1.96-9.15); NEUTROPHILS PERCENT AUTO 65 % (41-73); Platelet Count 318 K/mm3 (150-400); RDW Coefficient Variation 15.7 % (11.7-14.2); RDW Standard Deviation 56.8 fL (35.1-46.3); White Blood Cell Count 8.44 K/mm3 (4.00-11.30)
[2020-06-02 17:23] LABS: Alanine Aminotransfer (ALT/SGP 13 U/L (12-78); Albumin, Blood 2.8 g/dL (3.4-5.0); Albumin/Globulin Ratio 0.7 (0.8-1.8); Alk Phos 106 U/L (50-136); Anion Gap 5 mmol/L (6-16); Aspartate Aminotrans (AST/SGOT 10 U/L (12-37); Bilirubin, Total 0.3 mg/dL (0.1-1.0); Blood Urea Nitrogen 18 mg/dL (8-24); Bun/Creatinine Ratio 14.8 (12.0-20.0); CO2, Blood 25 mmol/L (21-32); Calcium, Blood 8.6 mg/dL (8.5-10.1); Chloride, Blood 113 mmol/L (98-108); Creatinine, Blood 1.22 mg/dL (0.40-1.00); Globulin, Blood 4.1 g/dL (2.2-4.0); Glomerular Filtration Rate 46 (60-); Glucose, Blood 106 mg/dL (70-99); Potassium, Blood 3.7 mmol/L (3.5-5.5); Sodium, Blood 143 mmol/L (136-145); Total Protein, Blood 6.9 g/dL (6.4-8.2); Troponin I <0.015 ng/mL (0.000-0.040)
[2020-06-02] MEDS ORDERED: NITR100CA (20:08)
[2020-06-02] MEDS ORDERED: Lasix20 MG PO (20:25)
== END 2020-06-02 20:45 | disposition home or self-care (01) ==
LOC: ER 16:36
PROVIDERS: Emergency Medicine
DX: R60.0 Localized edema (principal); J44.9 Chronic obstructive pulmonary disease, unspecified; E03.9 Hypothyroidism, unspecified; N18.9 Chronic kidney disease, unspecified; Z87.442 Personal history of urinary calculi; Z79.899 Other long term (current) drug therapy; Z79.82 Long term (current) use of aspirin; Z88.8 Allergy status to other drugs, medicaments and biological substances; Z88.5 Allergy status to narcotic agent; Z88.2 Allergy status to sulfonamides; Z88.1 Allergy status to other antibiotic agents; Z79.02 Long term (current) use of antithrombotics/antiplatelets; Z95.1 Presence of aortocoronary bypass graft; Z95.5 Presence of coronary angioplasty implant and graft; Z87.891 Personal history of nicotine dependence
CPT/HCPCS: 36415; 71046; 80053; 83880; 84484; 85025; 93005; 93010; 99284-25

== ENCOUNTER 2020-06-06 14:49 | Emergency (ER) | payer MEDICARE ==
[~2020-06-06] VITALS: Ht 157.5 cm; Wt 73.9 kg
[~2020-06-06 14:49] MED LIST changes: +Lasix20 MG PO; +NITR100CA
[2020-06-06 15:29] LABS: Source, Urine Clean Catch
[2020-06-06 15:39] LABS: Appearance, Urine Cloudy (Clear); Blood, Urine 5+ (Neg); Color, Urine Yellow (P-Yellow); Glucose Qualitative, Urine Neg (Neg); Ketones, Urine Neg (Neg); Leukocyte Esterase, Urine 3+ (Neg); Nitrite, Urine Pos (Neg); Protein, Urine 3+ (Neg); Urobilinogen, Urine 2+ (Normal)
[2020-06-06 15:40] LABS: Bilirubin, Urine 1+ (Neg)
[2020-06-06 15:41] LABS: White Blood Cells, Urine 25-50 /hpf (0-5)
[2020-06-06 15:42] LABS: Bacteria Few /hpf; Red Blood Cells, Urine 25-50 /hpf (0-2); Squamous Epithelial Cells Few /hpf (Few)
[2020-06-06] MEDS ORDERED: MONUROL3 GM PO (16:56)
== END 2020-06-06 17:16 | disposition home or self-care (01) ==
LOC: ER 14:49
PROVIDERS: Physician Assistant
DX: N39.0 Urinary tract infection, site not specified (principal); Z16.12 Extended spectrum beta lactamase (ESBL) resistance; Z87.440 Personal history of urinary (tract) infections; J44.9 Chronic obstructive pulmonary disease, unspecified; E03.9 Hypothyroidism, unspecified; Z88.2 Allergy status to sulfonamides; Z88.8 Allergy status to other drugs, medicaments and biological substances; Z88.5 Allergy status to narcotic agent; Z79.02 Long term (current) use of antithrombotics/antiplatelets; Z79.82 Long term (current) use of aspirin; Z95.1 Presence of aortocoronary bypass graft; Z95.5 Presence of coronary angioplasty implant and graft; Z79.899 Other long term (current) drug therapy
CPT/HCPCS: 81001; 87086; 99283

== ENCOUNTER → 2020-07-25 | Outpatient (CLI) | payer MEDICARE ==
[~2020-07-25] MED LIST changes: +MONUROL3 GM PO
== END | disposition home or self-care (01) ==
LOC: LAB SHORT 14:49 → LAB EV 14:49
DX: N39.0 Urinary tract infection, site not specified (principal)
CPT/HCPCS: 87077; 87086; 87186

== ENCOUNTER 2021-02-07 14:43 | Observation (INO) | payer OTHER ==
[~2021-02-07] VITALS: Ht 157.5 cm; Wt 72.4 kg
[~2021-02-07 14:43] MED LIST changes: -Aspirin EC81 MG PO; -CREON DR 12,001 EACH PO; -ISOMON20 PO; -LEVSOD100 PO; -LISI20 PO
[2021-02-07 15:36] LABS: BASOPHILS ABSOLUTE AUTO 0.05 K/mm3 (0.00-0.23); BASOPHILS PERCENT AUTO 1 % (0-2); EOSINOPHILS ABSOLUTE AUTO 0.24 K/mm3 (0.00-0.68); EOSINOPHILS PERCENT AUTO 3 % (0-6); Hematocrit 42.3 % (33.0-51.0); Hemoglobin 13.3 g/dL (11.5-16.0); IMMATURE GRAN ABSOLUTE AUTO 0.04 K/mm3 (0.00-0.10); IMMATURE GRAN PERCENT AUTO 0 % (0-1); LYMPHOCYTES ABSOLUTE AUTO 2.78 K/mm3 (0.84-5.20); LYMPHOCYTES PERCENT AUTO 31 % (21-46); MONOCYTES ABSOLUTE AUTO 0.51 K/mm3 (0.16-1.47); MONOCYTES PERCENT AUTO 6 % (4-13); Mean Corpuscular HGB 30.2 pg (26.0-34.0); Mean Corpuscular HGB Conc 31.4 g/dL (31.5-36.5); Mean Corpuscular Volume 96 fL (80-100); Mean Platelet Volume 10.2 fL (9.1-12.4); NEUTROPHILS ABSOLUTE AUTO 5.36 K/mm3 (1.96-9.15); NEUTROPHILS PERCENT AUTO 60 % (41-73); Platelet Count 267 K/mm3 (150-400); RDW Coefficient Variation 14.9 % (11.7-14.2); RDW Standard Deviation 53.4 fL (35.1-46.3); White Blood Cell Count 8.98 K/mm3 (4.00-11.30)
[2021-02-07 15:57] LABS: Alanine Aminotransfer (ALT/SGP 15 U/L (12-78); Albumin, Blood 3.6 g/dL (3.4-5.0); Albumin/Globulin Ratio 0.9 (0.8-1.8); Alk Phos 68 U/L (50-136); Anion Gap 2 mmol/L (6-16); Aspartate Aminotrans (AST/SGOT 11 U/L (12-37); Bilirubin, Total 0.4 mg/dL (0.1-1.0); Blood Urea Nitrogen 17 mg/dL (8-24); Bun/Creatinine Ratio 17.5 (12.0-20.0); CO2, Blood 26 mmol/L (21-32); Calcium, Blood 8.3 mg/dL (8.5-10.1); Chloride, Blood 116 mmol/L (98-108); Creatinine, Blood 0.97 mg/dL (0.40-1.00); Globulin, Blood 3.9 g/dL (2.2-4.0); Glomerular Filtration Rate >60 (60-); Glucose, Blood 140 mg/dL (70-99); Potassium, Blood 3.8 mmol/L (3.5-5.5); Sodium, Blood 144 mmol/L (136-145); Total Protein, Blood 7.5 g/dL (6.4-8.2); Troponin I <0.015 ng/mL (0.000-0.040)
[2021-02-07] MEDS ORDERED: METO25ER PO (21:52)
[2021-02-07] MEDS ORDERED: EUTHYROX125 MCG PO (21:52)
[2021-02-07] MEDS ORDERED: K-Dur10 MEQ PO (21:53)
[2021-02-07] MEDS ORDERED: TRAZ150T57 PO (21:54)
[2021-02-07] MEDS ORDERED: CLOP75 PO (21:55)
[2021-02-07] MEDS ORDERED: Aspirin EC81 MG PO (21:55)
[2021-02-07] MEDS ORDERED: TRELEGY ELLIPT1 EACH INH (21:55)
[2021-02-07] MEDS ORDERED: Ventolin/Prove6.7 GM INH (21:56)
[2021-02-07] MEDS ORDERED: TOPI50 PO (22:43)
[2021-02-07] MEDS ORDERED: OXYB5 PO (22:44)
[2021-02-07] MEDS ORDERED: CREON DR 12,001 EACH PO ×2 (22:45→22:46)
[2021-02-07] MEDS ORDERED: Imdur30 MG PO (22:45)
[2021-02-07] MEDS ORDERED: NEURONTIN300 MG PO (22:47)
[2021-02-07] MEDS ORDERED: OMEP20ER PO (22:47)
[2021-02-07] MEDS ORDERED: LISI20 PO (22:48)
[2021-02-07] MEDS ORDERED: Bentyl10 MG PO (22:48)
[2021-02-07] MEDS ORDERED: VITAMIN D5000 UNIT PO (23:19)
--- NOTE | 2021-02-07 23:50 | NUR ---
REPORT RECEIVED FROM METAL BONDING HELPER. PT GOING TO ICU ROOM 2.
--- NOTE | 2021-02-08 00:25 | NUR ---
PT ARRIVED ON UNIT ICU ROOM 2 PCU PT FROM ER ON , VITALS NOTED. PT CO 3 CHEST PAIN/PRESSURE, NONE RADIATION, NO N/V. PT TALKING NO SOB. BS WITH FAINT END EXP WHEEZES ON RT SIDE, SLIGHTLY DECREASED LEFT. NITRO GIVEN PER NOV. GOLF STUD RIVETER IN ROOM, AWARE OF CHEST PAIN. CONTINUE TO ASSESS AND CONTINUE ADMIT PROCESS.
--- NOTE | 2021-02-08 00:39 | NUR ---
CHEST PRESSURE CONTINUES POST NITRO, VITALS NOTED. NEXT DOSE NITRO GIVEN. CONTINUE ASSESSMENT.
--- NOTE | 2021-02-08 06:12 | NUR ---
ASSESSED PT RESTED OVERNIGHT, PAIN RESOLVED POST NITRO AND TYLENOL. VITALS NOTED. SR/SB ON MONITOR WITH PROLONG QTC NOTED. PT UP TO BR, SBA 1, STEADY. CONTINUE ASSESSMENT AND CARE TILL SHIFT HAND OFF.
--- NOTE | 2021-02-08 07:56 | NUR ---
Patient sleping and awakens easily to verbal stimuli. She states 2-3 chest pain and is tolerable and increases with movement. She has 20ga LAC dressing intact and site WNL's. She is alert and oriented and is able to communicate her needs. She is to have nuclear med study today and will give breakfast after they inject, per nuc med. She is able top MAEW. VSS, See EMR. She is on RA and sats 95%.
--- NOTE | 2021-02-08 10:59 | NUR ---
Patient went for resting study and is back now. Medicated with Imdur and diprovan that she requested from home meds. Tolerated breakfast and am med swith water. She is currently resting. VSS, See EMR. She denies any chast pain currently. Med stress test in am.
--- NOTE | 2021-02-08 12:42 | NUR ---
Patient has been sleeping in room post resting test this am. She has denied any current chest pain or needs. We will sit her up for lunch. No other significant changes with patient,
--- NOTE | 2021-02-08 14:19 | NUR ---
Patient was up out of bed and walked to shower, and linens changed. Placed her in pull-up and pad for stress incontinence. VSS, See EMR. She continues to deny chest pain. She is independent in roomand calls for assist with lines.
--- NOTE | 2021-02-08 17:30 | NUR ---
Patient has been resting and awakens for care easily. She is up with assist with lines to bathroom. She stated chest pain 3/10 and was decreased with her scheduled Imdur. VSS, See EMR. She is oriented and able to communicate her needs. She MAEW.
--- NOTE | 2021-02-09 05:15 | NUR ---
MINT WAFER DEPOSITOR SUMMARY PT BEGAN SHIFT W C/O 10/09 CP WELL HTN W SBP IN 150'S HOWEVER AFTER RECIEVING HER IMDUR THE CP WAS RELIEVED AND BP WAS WNL. PT MAINTAINED O2 SATS >92% ON RM AIR. OTHER THAN CP THE PT DENIED ANY PAIN OR NAUSEA THIS SHIFT. TROPONINS CONTINUE TO BE NEGATIVE, PT INSTRUCTED ON PLAN FOR SECOND PART OF HER STRESS TEST AND NEED FOR NPO FOR IT. TELE- NSR IN 60'S. VSS, WCTM.
--- NOTE | 2021-02-09 08:11 | NUR ---
Assumed care of pt at 0700. Report received from Axel OWUSU. Pt A&O x 4. Answers questions. Follows commands. Verbalizes needs. Pleasant and cooperative with care. NPO until second portion of stress test at 1000 today. Pt verbalizes understanding. Pt on room air. SpO2 90% or greater. SB per monitor. BP stable. Denies chest pain. Bed in lowest position. Call light in reach. Pt denies need at this time.
--- NOTE | 2021-02-09 12:08 | NUR ---
Stress test complete. Report given to Marcelle OWUSU, as pt is transferring to PCU. Pt departed from unit at 1208 via wheelchair, accompanied by Marcelle OWUSU. Chart, medications, and belongings transfered with patient.
--- NOTE | 2021-02-09 12:14 | NUR ---
pt transferred by wheelchair to PCU 4 at this time. Blood pressure noted elevated, pt is in no distress, and no chest pain. Imdur was held this morning as contraindicated with lexiscan. 1400 dose was given at this time.
--- NOTE | 2021-02-09 13:34 | NUR ---
Vital signs taken. Pt states that she is having off and on chest pain since Saturday, and right now it is 6/10. nitroglycerin tab given sublingually at this time per PRN orders.
--- NOTE | 2021-02-09 14:11 | NUR ---
Pt reports that her chest discomfort has subsided to 2/10. She appears comfortable, states it is tolerable.
--- NOTE | 2021-02-09 15:06 | NUR ---
Dr. Zhou here to see the patient. Reported to him her vital signs,reported chest pain and administration times of imdur, NTG and resulting relief.
--- NOTE | 2021-02-09 15:07 | NUR ---
Looked at results of stress test on [facility] with Dr. Zhou.
--- NOTE | 2021-02-09 16:13 | NUR ---
Reports chest pain continuing in waves, now at 4-5/10, and states that it is going up and down every 5-10 minutes. States she is supposed to be taking omeprazole, creon and gabapentin but hasn't been on them while in hospital.
--- NOTE | 2021-02-09 17:56 | NUR ---
Reviewed the pt's discharge instructions with her. Questions answered, and pt states she wants to go home. She already has an appointment with Dr. Clay at the end of this month, and will call her PCP tomorrow to make a hospital follow up appointment. She is calling for a ride to take her home now.
--- NOTE | 2021-02-09 18:28 | NUR ---
Pt's ride is outside, waiting for her, she says. Pt taken outside in wheelchair by ARANZA Meng at this time.
== END 2021-02-09 18:27 | disposition home or self-care (01) ==
LOC: ER 14:43 → ICUW 14:44 → ICUE 14:44 → ER 23:52 → ICUE 23:55 → ICUW 02-08 13:21 → ICUE 02-08 13:23 → PCU 02-09 12:11
PROVIDERS: Physician Assistant; ADMIT Internal Medicine
DX: R07.89 Other chest pain (principal); I25.10 Atherosclerotic heart disease of native coronary artery without angina pectoris; J44.9 Chronic obstructive pulmonary disease, unspecified; E03.9 Hypothyroidism, unspecified; I25.2 Old myocardial infarction; K21.9 Gastro-esophageal reflux disease without esophagitis; F32.9 Major depressive disorder, single episode, unspecified; M79.7 Fibromyalgia; N18.9 Chronic kidney disease, unspecified; Z88.5 Allergy status to narcotic agent; Z88.2 Allergy status to sulfonamides; Z88.8 Allergy status to other drugs, medicaments and biological substances; Z87.440 Personal history of urinary (tract) infections; Z87.891 Personal history of nicotine dependence; Z95.1 Presence of aortocoronary bypass graft; Z95.5 Presence of coronary angioplasty implant and graft; Z96.0 Presence of urogenital implants; Z79.82 Long term (current) use of aspirin
CPT/HCPCS: 36415; 71046; 78452; 80053; 84484; 85025; 93005; 93010; 93017; 94640; 94664; 96372; 96374; 99285-25; A9270; A9500; G0378; J0280; J1650; J2785

== ENCOUNTER 2021-02-21 11:43 | Observation (INO) | payer MEDICARE ==
[~2021-02-21] VITALS: Ht 157.5 cm; Wt 57.1 kg
[~2021-02-21 11:43] MED LIST changes: +Aspirin EC81 MG PO; +Bentyl10 MG PO; +CREON DR 12,001 EACH PO; +EUTHYROX125 MCG PO; +Imdur30 MG PO; +K-Dur10 MEQ PO; +LISI20 PO; +NEURONTIN300 MG PO; +OMEP20ER PO; +TRAZ150T57 PO; +TRELEGY ELLIPT1 EACH INH; +VITAMIN D5000 UNIT PO; +Ventolin/Prove6.7 GM INH
[2021-02-21 12:56] LABS: BASOPHILS ABSOLUTE AUTO 0.05 K/mm3 (0.00-0.23); BASOPHILS PERCENT AUTO 1 % (0-2); EOSINOPHILS PERCENT AUTO 5 % (0-6); Hematocrit 40.3 % (33.0-51.0); Hemoglobin 12.4 g/dL (11.5-16.0); IMMATURE GRAN ABSOLUTE AUTO 0.03 K/mm3 (0.00-0.10); IMMATURE GRAN PERCENT AUTO 1 % (0-1); LYMPHOCYTES ABSOLUTE AUTO 1.53 K/mm3 (0.84-5.20); LYMPHOCYTES PERCENT AUTO 25 % (21-46); MONOCYTES ABSOLUTE AUTO 0.34 K/mm3 (0.16-1.47); MONOCYTES PERCENT AUTO 6 % (4-13); Mean Corpuscular HGB 30.5 pg (26.0-34.0); Mean Corpuscular HGB Conc 30.8 g/dL (31.5-36.5); Mean Corpuscular Volume 99 fL (80-100); Mean Platelet Volume 10.3 fL (9.1-12.4); NEUTROPHILS ABSOLUTE AUTO 3.85 K/mm3 (1.96-9.15); NEUTROPHILS PERCENT AUTO 63 % (41-73); Platelet Count 226 K/mm3 (150-400); RDW Coefficient Variation 15.6 % (11.7-14.2); RDW Standard Deviation 56.9 fL (35.1-46.3); Red Blood Cell Count 4.06 M/mm3 (3.80-5.20)
[2021-02-21 13:08] LABS: International Normalized Ratio 0.94; Prothrombin Time Results 10.2 Sec (9.7-11.5)
[2021-02-21 13:15] LABS: Alanine Aminotransfer (ALT/SGP 16 U/L (12-78); Albumin, Blood 3.3 g/dL (3.4-5.0); Albumin/Globulin Ratio 0.9 (0.8-1.8); Alk Phos 62 U/L (50-136); Anion Gap 5 mmol/L (6-16); Aspartate Aminotrans (AST/SGOT 9 U/L (12-37); Bilirubin, Total 0.3 mg/dL (0.1-1.0); Blood Urea Nitrogen 19 mg/dL (8-24); Bun/Creatinine Ratio 13.7 (12.0-20.0); CO2, Blood 22 mmol/L (21-32); Chloride, Blood 115 mmol/L (98-108); Creatinine, Blood 1.39 mg/dL (0.40-1.00); Globulin, Blood 3.7 g/dL (2.2-4.0); Glomerular Filtration Rate 40 (60-); Glucose, Blood 88 mg/dL (70-99); Potassium, Blood 3.6 mmol/L (3.5-5.5); Sodium, Blood 142 mmol/L (136-145); Troponin I <0.015 ng/mL (0.000-0.040)
[2021-02-21] MEDS ORDERED: RANO500T PO (13:56)
[2021-02-21] MEDS ORDERED: KLOR-CON 1010 ME2 PO (14:26)
--- NOTE | 2021-02-21 18:52 | NUR ---
RECEIVED REPORT FROM FRANCOISE DIAZ IN ED. AWAITING PATIENT TRANSFER TO PCU ROOM 15
--- NOTE | 2021-02-22 01:23 | NUR ---
PCU ADMIT/CARE ASSUMPTION PT ARRIVED TO PCU UNIT AT 1920 FROM THE ED BY VIJAYA. PT TRANSFERED FROM [facility] TO PCU BED WITH A STAND BY ASSIST. PT IS AO X4. PT VSS. SPO2 >90%. PT REPORTS NO SHORTNESS OF BREATH. TELE SR 50S. PT REPORTS CHEST PAIN THAT IS "SQUEZING, PRESSURE, TIGHT, AND FEELS LIKE SOMEONE IS INSIDE PUNCHING AROUND. PT HAS NITRO PATCH IN PLACE. PT RECEIVED MORPHINE PER EMAR ORDER. UPON REASSESSMENT PT STATES NO CHEST PAIN WHEN RESTING, AND MINIOR CHEST PAIN WHEN MOVING. PT IS NPO FOR ANGIOGRAM IN THE AM. PT OREINTATED TO ROOM AND CALL LIGHT. CALL LIGHT WITHIN REACH. WILL CONTINUE TO MONITOR AND PROVIDE CARE.
--- NOTE | 2021-02-22 06:10 | NUR ---
SHIFT SUMMARY PT AO X4. VSS. SPO2 >90% ON RA. TELE SR 50S. PT REPORTS NO CHEST PAIN AT THIS TIME. NO ACUTE CHANGES DURING THIS STUDENT NURSE SHIFT. CALL LIGHT WITHIN REACH. WILL CONTINUE TO MONITOR AND PROVIDE CARE UNTIL HAND OFF WITH DAY SHIFT.
[2021-02-22 07:14] LABS: BASOPHILS ABSOLUTE AUTO 0.04 K/mm3 (0.00-0.23); BASOPHILS PERCENT AUTO 1 % (0-2); EOSINOPHILS ABSOLUTE AUTO 0.35 K/mm3 (0.00-0.68); EOSINOPHILS PERCENT AUTO 6 % (0-6); Hematocrit 37.9 % (33.0-51.0); IMMATURE GRAN ABSOLUTE AUTO 0.02 K/mm3 (0.00-0.10); IMMATURE GRAN PERCENT AUTO 0 % (0-1); LYMPHOCYTES ABSOLUTE AUTO 2.11 K/mm3 (0.84-5.20); LYMPHOCYTES PERCENT AUTO 35 % (21-46); MONOCYTES ABSOLUTE AUTO 0.42 K/mm3 (0.16-1.47); MONOCYTES PERCENT AUTO 7 % (4-13); Mean Corpuscular HGB 30.5 pg (26.0-34.0); Mean Corpuscular HGB Conc 31.7 g/dL (31.5-36.5); Mean Corpuscular Volume 96 fL (80-100); Mean Platelet Volume 10.2 fL (9.1-12.4); NEUTROPHILS ABSOLUTE AUTO 3.13 K/mm3 (1.96-9.15); NEUTROPHILS PERCENT AUTO 52 % (41-73); Platelet Count 206 K/mm3 (150-400); RDW Coefficient Variation 15.3 % (11.7-14.2); RDW Standard Deviation 53.8 fL (35.1-46.3); Red Blood Cell Count 3.94 M/mm3 (3.80-5.20); White Blood Cell Count 6.07 K/mm3 (4.00-11.30)
[2021-02-22 07:32] LABS: Alanine Aminotransfer (ALT/SGP 15 U/L (12-78); Albumin, Blood 2.9 g/dL (3.4-5.0); Alk Phos 53 U/L (50-136); Anion Gap 3 mmol/L (6-16); Aspartate Aminotrans (AST/SGOT 8 U/L (12-37); Bilirubin, Total 0.4 mg/dL (0.1-1.0); Blood Urea Nitrogen 15 mg/dL (8-24); Bun/Creatinine Ratio 13.9 (12.0-20.0); CO2, Blood 25 mmol/L (21-32); Calcium, Blood 8.2 mg/dL (8.5-10.1); Chloride, Blood 115 mmol/L (98-108); Creatinine, Blood 1.08 mg/dL (0.40-1.00); Globulin, Blood 2.9 g/dL (2.2-4.0); Glomerular Filtration Rate 53 (60-); Glucose, Blood 87 mg/dL (70-99); Potassium, Blood 3.7 mmol/L (3.5-5.5); Sodium, Blood 143 mmol/L (136-145); Total Protein, Blood 5.8 g/dL (6.4-8.2); Troponin I <0.015 ng/mL (0.000-0.040)
--- NOTE | 2021-02-22 11:27 | NUR ---
AM NOTE PT A&O X 4. SHE IS PLEASANT AND COOPERATIVE W/ CARE. VS AT 1117 ARE FOLLOWS. BP 142/90, SPO2 98 ON RA, RR 14, HR 60. PT REPORTED PAIN INTERMITTENTLY IN CHEST; 8/10 W/ ONSET. PT DESCRIBED PAIN TIGHT, SHARP AND STATED IT FEELS LIKE SOMEONE PUNCHED HER IN CHEST WHEN OCCURING. LOGAN OWUSU TREATED W/ MORPHINE PER EMAR. PT REPORTED PAIN / UPON REASSESSMENT. EXPIRATORY COARSNESS NOTED IN RML, RLL, LLL. WILL CONTINUE TO MONITOR T/O SHIFT. CALL LIGHT IN REACH, BED IN LOW.
--- NOTE | 2021-02-22 15:59 | NUR ---
PT TO EMERGENCY PLANNING AND RESPONSE MANAGER
--- NOTE | 2021-02-22 17:10 | NUR ---
SHIFT SUMMARY PT A&O X4. VS AT 1117 FOLLOWS; BP 142/90, SPO2 98% ON RA, RR 14, HR 60. PT PT APPEARED TO BE SLEEPING MAJORITY OF AFTERNOON BUT WOULD WAKE UPON VERBAL STIMULI. PT LEFT IV INFUSED FLUIDS PER EMAR. PT SBA TO BEDSIDE COMMODE. PT DID NOT REPORT CHEST PAIN/TIGHTNESS AFTER TREATED IN AM W/ MORPHINE. NO ACUTE CHANGES NOTED. PT NOW IN SUSTAINMENT LOGISTICS ANALYST. WILL CONTINUE TO MONITOR UPON RETURN FROM SUSTAINMENT LOGISTICS ANALYST.
--- NOTE | 2021-02-22 19:20 | NUR ---
PT BACK TO ROOM AT APPROX 1745, BEDSIDE REPORT RECEIVED FROM DIGITAL STRATEGIST. PT ON BEDREST, EDUATED PT ON ACTIVITY RESTRICTIONS AND NOT TO MOVE RIGHT LEG. RIGHT GROIN SITE C/D/I, SCANT AMOUNT OF DRIED BLOOD NOTED. NO BLEEDING, BRUISING OR HEMATOMA NOTED. VSS. THIS RN HAS REVIEWED THE NURSING STUDENTS DOCUMENTATION AND AM IN AGREEMENT.
--- NOTE | 2021-02-22 19:41 | NUR ---
PT BACK TO ROOM FROM WEIGH BOX TENDER AT APPROX 1745; RECEIVIED BEDSIDE REPORT. RIGHT GROIN SITE NOTED, SCANT AMOUNT OF DRIED BLOOD NOTED, NO ADDITIONAL BLEEDING, BRUISING OR HEMATOMA NOTED. SITE SOFT BUT TENDER. PT ON BEDREST LYING FLAT, PT EDCUATED ON ACTIVITY RESTRICTIONS. VSS. NO OTHER ACUTE CHANGES NOTED. THIS RN HAS REVIEWED THE NURSING STUDENTS DOCUMENTATION AND AM IN AGREEMENT. REPORT GIVEN TO ONCOMING RN.
--- NOTE | 2021-02-22 21:55 | NUR ---
CARE ASSUMPTION PT A&O X4. VSS. SPO2 >90% ON RA. PT DENIES SHORTNESS OF BREATH. TELE SINUS ERIC 50S. PT DENIES ANY CHEST PAIN. PT R GROIN ACCESS SITE HAS SCANT AMOUNT OF BLOOD ON THE DRESSING, NO NEW BLEEDING, BRUSING, OR HEMATOMA NOTED. PT STATES MILD TENDERNESS UPON PALPATION. PT REPORTS BACK CRAMPING AT 8/10 AND RECEIVED TYELNOL PER EMAR ORDER. UPON REASSESMENT PT STATES PAIN IS AT 6/10. PT REPOSITION TO HER LEFT SIDE WITH HER RIGHT LEG REMAINING STRAIGHT TO HELP WITH HER BACK CRAMPING. PT CALL LIGHT WITHIN REACH. WILL CONTINUE TO MONITOR AND PROVIDE CARE.
--- NOTE | 2021-02-23 05:46 | NUR ---
SHIFT SUMMARY PT A&O X4. VSS. SPO2 >90% ON RA. PT REPORTS NO SHORTNESS OF BREATH. TELE SINUS ERIC 50S. PT REPORTS NO CHEST PAIN. RIGHT GROIN ACCESS SITE TENDER ON PALPATION, SCANT AMOUNT OF BLOOD ON DRESSING, NO NEW BLEEDING, BRUSING, REDDNESS, OR SWELLING. NO ACUTE CHANGES THIS SHIFT. CALL LIGHT WITHIN REACH. WILL CONTINUE TO MONITOR AND PROVIDE CARE UNTIL HAND OFF WITH DAY SHIFT.
[2021-02-23 06:54] LABS: BASOPHILS ABSOLUTE AUTO 0.04 K/mm3 (0.00-0.23); BASOPHILS PERCENT AUTO 1 % (0-2); EOSINOPHILS ABSOLUTE AUTO 0.29 K/mm3 (0.00-0.68); EOSINOPHILS PERCENT AUTO 5 % (0-6); Hematocrit 36.8 % (33.0-51.0); Hemoglobin 11.7 g/dL (11.5-16.0); IMMATURE GRAN ABSOLUTE AUTO 0.02 K/mm3 (0.00-0.10); IMMATURE GRAN PERCENT AUTO 0 % (0-1); LYMPHOCYTES ABSOLUTE AUTO 1.61 K/mm3 (0.84-5.20); LYMPHOCYTES PERCENT AUTO 26 % (21-46); MONOCYTES ABSOLUTE AUTO 0.41 K/mm3 (0.16-1.47); MONOCYTES PERCENT AUTO 7 % (4-13); Mean Corpuscular HGB 30.3 pg (26.0-34.0); Mean Corpuscular HGB Conc 31.8 g/dL (31.5-36.5); Mean Corpuscular Volume 95 fL (80-100); Mean Platelet Volume 10.6 fL (9.1-12.4); NEUTROPHILS ABSOLUTE AUTO 3.72 K/mm3 (1.96-9.15); NEUTROPHILS PERCENT AUTO 61 % (41-73); Platelet Count 192 K/mm3 (150-400); RDW Coefficient Variation 15.2 % (11.7-14.2); RDW Standard Deviation 53.5 fL (35.1-46.3); Red Blood Cell Count 3.86 M/mm3 (3.80-5.20); White Blood Cell Count 6.09 K/mm3 (4.00-11.30)
[2021-02-23 07:12] LABS: Bun/Creatinine Ratio 11.8 (12.0-20.0); Calcium, Blood 7.9 mg/dL (8.5-10.1); Creatinine, Blood 1.02 mg/dL (0.40-1.00); Potassium, Blood 3.7 mmol/L (3.5-5.5)
--- NOTE | 2021-02-23 07:38 | NUR ---
Bedside report received from SN Kathy and FRANCOISE Syed. The pt is awake, alert, and pleasantly conversant, and oriented to person, place, date/time and ongoing events. 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 No current chest pain, discomfort or dyspnea.
[2021-02-23 08:03] LABS: CHOL/HDL RATIO 4.4; Cholesterol 184 mg/dL (50-200); HDL Cholesterol 42 mg/dL (>39); LDL/HDL RATIO 2.8; Low Density Lipoprotein Chol 119 mg/dL (0-110); Triglycerides 117 mg/dL (30-160); Very Low Density Lipoprot Chol 23 mg/dL (6-32)
--- NOTE | 2021-02-23 09:08 | NUR ---
Pt stood up with assist to reposition in the recliner, and then c/o chest tightness 2/10, states does not radiate any other location, and is worse with inspiration and coughing. STates that she feels slightly short of breath as well. spo2 98% on room air. Heart rate 61 bpm, RR 20/min, no distress. Requested to recline in chair, so I assisted her with this. STates that the pain remains on the left side, 5/10 and just the same as when she initially came into the hospital. NO dyspnea noted.
--- NOTE | 2021-02-23 09:18 | NUR ---
Pt is lying back in recliner, eyes closed, respirations even and unlabored. STates the pain is letting up from a 6/10 to 4/10.
--- NOTE | 2021-02-23 12:20 | NUR ---
PT states that she is pain free right now, but that the chest pain has been coming and going about once an hour, lasting about 10 minutes at a time. She describes it as tightness and sometimes dull and stabbing at the same time, located in different places; sometimes in the left chest, sometimes on the right and radiating to different sides. States that it gets worse with activity, like walking around. She is inconsistent in her reporting of whether or not it is worse with deep breathing/coughing. She has just finished eating lunch. States the pain is not precipitated by meals.
--- NOTE | 2021-02-23 13:55 | NUR ---
The pt appears to be napping in supine position in her bed, HOB at 30 degrees elevation.
--- NOTE | 2021-02-23 14:58 | NUR ---
Pt appears to be sleeping soundly, respirations even and unlabored, spo2 96% on room air, while on her right side.
[2021-02-24 04:03] LABS: BASOPHILS ABSOLUTE AUTO 0.05 K/mm3 (0.00-0.23); BASOPHILS PERCENT AUTO 1 % (0-2); EOSINOPHILS ABSOLUTE AUTO 0.23 K/mm3 (0.00-0.68); EOSINOPHILS PERCENT AUTO 3 % (0-6); Hemoglobin 11.2 g/dL (11.5-16.0); IMMATURE GRAN ABSOLUTE AUTO 0.03 K/mm3 (0.00-0.10); IMMATURE GRAN PERCENT AUTO 0 % (0-1); LYMPHOCYTES ABSOLUTE AUTO 2.14 K/mm3 (0.84-5.20); LYMPHOCYTES PERCENT AUTO 30 % (21-46); MONOCYTES ABSOLUTE AUTO 0.45 K/mm3 (0.16-1.47); MONOCYTES PERCENT AUTO 6 % (4-13); Mean Corpuscular HGB 30.2 pg (26.0-34.0); Mean Corpuscular Volume 94 fL (80-100); Mean Platelet Volume 10.5 fL (9.1-12.4); NEUTROPHILS ABSOLUTE AUTO 4.26 K/mm3 (1.96-9.15); NEUTROPHILS PERCENT AUTO 60 % (41-73); Platelet Count 210 K/mm3 (150-400); RDW Coefficient Variation 15.1 % (11.7-14.2); RDW Standard Deviation 51.8 fL (35.1-46.3); Red Blood Cell Count 3.71 M/mm3 (3.80-5.20); White Blood Cell Count 7.16 K/mm3 (4.00-11.30)
[2021-02-24 04:22] LABS: Bun/Creatinine Ratio 13.5 (12.0-20.0); Calcium, Blood 8.7 mg/dL (8.5-10.1); Creatinine, Blood 1.11 mg/dL (0.40-1.00); Potassium, Blood 3.7 mmol/L (3.5-5.5)
--- NOTE | 2021-02-24 06:22 | NUR ---
SHIFT SUMMARY PT AOX4 T/O NIGHT, BREATHING EVEN AND UNLABORED. DENIED CP TO THIS RN. AMBULATED TO BATHROOM AND BACK TO BED WITH STANDBY ASSIST SEVERAL TIMES W/O INCIDENT. VSS.
--- NOTE | 2021-02-24 09:52 | NUR ---
Pt states she is having chest pain 8/10, like something sitting on her chest. Sitting on side of bed, leaning over and holding her left chest. States feels short of breath. RR 22/min, no dyspnea noted, lung sounds clear and spo2 95% on room air. Blood pressure 150/90 approx. EKG 12 lead done, no significant changes noted; sinus rhythm at 70 bpm. Pt states her chest pressure decreased now to 6/10. She is sitting up in bed now, has taken metoprolol, Imdur, aspirin and plavix p.o. Scheduled breathing tx was also given by respiratory therapist at this time. She does not appear to be in distress. NO diaphoresis. Lying in bed, eyes closed, respirations even and unlabored.
--- NOTE | 2021-02-24 12:00 | NUR ---
Pt sitting up in bed, states that she is no longer having any chest pain/discomfort/pressure. She is hungry for lunch.
--- NOTE | 2021-02-24 12:49 | NUR ---
Spoke with Dr. Zhou to inform of abnormal d Dimer value. He will order a scan to check for other causes of chest pain besides cardiac since Dr. Webber has said that the pt's ongoing discomfort is not cardiac related.
--- NOTE | 2021-02-24 15:17 | NUR ---
No results yet on CT scan. Dr. Zhou here, updated him on pt's condition.
--- NOTE | 2021-02-24 16:45 | NUR ---
Pt states she still did not have a bowel movement today. CT scan negative for embolism, but shows large amount of stool. Pt is c/o nausea at this time. Pepcid given as scheduled. STates that she has been up to the bathroom a couple of times today. Otherwise I have only seen her lying in bed today.
--- NOTE | 2021-02-24 16:50 | NUR ---
Pt states she just "doesn't feel well". States that she feels wheezing in her breathing. Audible wheezes noted. Lena RT here to give pt an albuterol at this time. Pt does not appear to be in any distress, and has no c/o chest pain at this time.
--- NOTE | 2021-02-24 18:14 | NUR ---
Pt appears to be sleeping. Respirations even, unlabored. She is lying on her right side with the lights off and her eyes are closed.
--- NOTE | 2021-02-24 23:18 | NUR ---
VSS, CONNECTED TO TELEMETRY - NSR IN THE 60'S. PT IS SBA IN HER ROOM. DENIES CHEST PAIN OR SOB. C/O NAUSEA AND DECREASED APPETITE. SURGICAL PUNCTURE SITE IN HER RIGHT GROIN IS COVERED WITH A CLEAR OCCLUSIVE DRESSING, NO BLEEDING OR HEMATOMA NOTED. PT'S ABD HAS BRUISING AT SITE OF HEPARIN INJECTIONS. PT EDUCATED TO NOT RUB INJECTION SITES. PT REPORTS HER LAST BM Saturday02/18/28. BS PRESENT X [address] SCAN SHOWED CONSTIPATION. TREATED WITH SENNOKOT PER EMAR. WILL CONTINUE TO ENCOURAGE FLUIDS AND TREAT PER BOWEL CARE PROTOCOL.
--- NOTE | 2021-02-25 06:14 | NUR ---
SHIFT SUMMARY PT REMAINED IN STABLE CONDITION DURING THE SHIFT. BP REMAINED STABLE. SHE WAS ABLE TO SLEEP, EXCEPT FOR VITAL SIGN CHECKS. NO C/O CHEST PAIN. PT C/O NAUSEA EARLIER IN THE SHIFT, WHICH IMPROVED WITH TIME AND SHE WAS ABLE TO EAT A BREAD ROLL. CONNECTED TO TELEMETRY, SINUS RHYTHM. PT'S LAST BM WAS 02/18/21. SHE IS ON BOWEL PROTOCOL - MIRALAX, SENNOKOT, ENCOURAGING FLUIDS. PRESENTLY RESTING, WITH CALL LIGHT IN HAND. RN WILL CONTINUE TO MONITOR.
--- NOTE | 2021-02-25 13:30 | NUR ---
Initial palliative care consult: Carie is a 70 year old with a history of cardiac disease, multiple stent placements, fibromyalia, CKD, COPD, depression and hypothyroidism. She was admitted on 02/21/21 with chest pain which has been off and on for about the past week. She lives with her s.o., Yao, on the same property as her daughter, son-in-law and their four youngest children. 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 She is hopeful to improve with her health to be able to show her dogs again. She is also raising 11 miniature horses and several dogs and cats. She is getting ready to raise silky chickens. She has a best friend, Astrid, who shares her love of animals. Alicia states her concern is why she keeps having chest pain off and on. She states that the pearler is arranging for her to see a pearler in [place] re: her pain. She states that her bypass grafts are reoccluding (she had a 3 vessel bypass graft done in 2004) and she is unsure if the doctors in [place] will give her some options for treatment. She states she wants to live and wants to have full treatments at this time. We discussed her cardiac disease and how that will likley continue to progress over time. She expresses her desire to live. She is unsure of how long she would want to be on life support if this was needed. She is interested in some reading material about advanced care planning so that she can talk with her pearler about it. Carie shares that she is currently working on a trust and will. She is working on completing the paperwork and going to take it to her manager animation. She is planning to name her daughter as her decision maker and is considering adding Astrid, her best friend, as an alterate decision maker as they have been friends since they were teenagers. Provided her with the pamphlet planning ahead with AD and a pamphlet about what resusitation efforts are. She was grateful for the material. Carie reports she has plenty of support at home. Encouraged Carie to ask questions if she has any after reading the materials. PC will continue to follow for advanced care planning as needed.
--- NOTE | 2021-02-25 17:44 | NUR ---
SHIFT SUMMARY VSS THROUGHOUT SHIFT. SPO2 REMAINS ABOVE 94% ON ROOM AIR WHILE EATING AND WALKING. SHE HAD ONE MINOR EPISODE OF PRESSURE IN HER CHEST THIS AM THAT RESOLVED WIHTOUT INTERVENTION WITHIN ONE MINUTE. SHE CONTINUES TO COMPLAIN OF CONSTIPATION. SHE HAS HAD STOOL SOFTNERS, LAXATIVES, WARM PRUNE JUICE WITH BUTTER, AND A SUPPOSITORY. NO RESULTS THIS SHIFT, THOUGH SHE IS PASSING GAS. NO BLEEDING OR HEMATOMA NOTED ON RIGHT FEMORAL SIGHT.
--- NOTE | 2021-02-25 23:56 | NUR ---
WHILE RN WAS COMPLETING MIDNIGHT VITALS, PT STATES THAT SHE HAD AN EPISODE OF CHEST PAIN "AROUND 9PM". PT STATES SHE DID NOT USE HER CALL BUTTON TO ALERT STAFF. PT DESCRIBES THE CHEST PAIN "DEEP" LIKE "SOMEONE WAS SITTING ON ME" IN THE CENTER OF HER CHEST. PT STATES THE PAIN LASTED FOR ONE MINUTE, AND THEN RESOLVED "LIKE IN WAVES." RN ASKED PT TO CALL STAFF IF SHE FEELS THE CHEST PAIN AGAIN. RN WILL CONTINUE TO MONITOR. PT IS CONNECTED TO TELEMETRY, SINUS RHYTHM.
--- NOTE | 2021-02-26 | NUR ---
PT IS A&0 X4, CONNECTED TO TELEMETRY, SINUS RHYTHM IN THE 60'S AND 70'S. SHE IS SATING ABOVE 94% ON ROOM AIR. IV IN LEFT ARM, FLUSHED EASILY, SITE IS C/D/I AND COVERED WITH A WINDOW DRESSING. SO FAR PT HAS REPORTED ONE EPISODE OF CHEST PAIN TO HER NURSE, SHE REPORTS FEELING "A LITTLE SHORT OF BREATH" UPON AMBULATING TO THE BATHROOM. PT HAS NOT HAD A BM SINCE 02/18/21. BOWEL CARE PROTOCOL HAS BEEN FOLLOWED WITH PRN MEDICATION. RN DISCUSSED WITH CHARGE NURSE DIGITAL DISIMPACTION, AND THEN OFFERED THIS INTERVENTION TO THE PT, IF SHE IS COMFORTABLE WITH THE PROCEDURE. PT STATES SHE WANTS TO WAIT. PT REPORTS FLATULENCE, AND DECREASED APPETITE. DENIES THE URGE TO HAVE A BM. PT CURRENTLY RESTING, CALL LIGHT WITHIN REACH. WILL CONTINUE TO MONITOR.
--- NOTE | 2021-02-26 05:22 | NUR ---
SHIFT SUMMARY PT RESTED WELL THIS EVENING. PT REPORTED ONE EPISODE OF CHEST PAIN, AT 2100 SHE REPORTED ONE MINUTE OF CHEST PAIN DESCRIBED "DEEP" AND "LIKE SOMEONE WAS SITTING ON ME." PT DIDNOT CALL NURSE AT THE TIME OF THE CHEST PAIN BUT REPORTED IT DURING VITAL CHECKS. THROUGH OUT THE REST OF THE SHIFT, PT DENIED CHEST PAIN. SHE REPORTS FEELING "OUT OF BREATH" WHEN SHE GETS UP TO USE THE BATHROOM. THERE IS SOME WHEEZING IN HER LOWER LUNGS. PT HAS NOT HAD A BOWEL MOVEMENT THIS SHIFT. SHE REPORTS FLATULENCE, DECREASED APPETITE. DENIES NAUSEA AND VOMITING. PT IS A&O X4. MONITORED VIA TELEMETRY, SINUS RHYTHM. VSS. NO ACUTE CHANGES. WILL CONTINUE TO MONITOR.
--- NOTE | 2021-02-26 06:19 | NUR ---
0545: PER PREVIOUS REPORTS OF ATYPICAL CHEST PAIN, PT REPORTED ANOTHER EPISODE OF CHEST PAIN AFTER AMBULATING TO THE BATHROOM. VSS. TELE SHOWED NO CHANGES, REMAINED SINUS RHYTHM IN THE 70'S. PT REPORTED CHEST PAIN PASSED WITHIN 2-3 MINUTES.
--- NOTE | 2021-02-26 18:52 | NUR ---
PT REPORTS THAT HER HIATAL HERNIA IS RETURNING AND THAT SHE REPORTED THIS TO DR. WELLS; PT INSTRUCTED TO EAT MEALS SLOWLY AND CHEW FOOD THOROUGHLY WITH PLENTY OF FLUIDS; PT REFUSED TO TRY ANOTHER SUPPOSITORY; DR. WELLS PROVIDED ORDERS FOR SOAP SUDS ENEMA OR FLEET ENEMA PER PT CHOICE; RN PREPARED PRUNE JUICE/MARGARINE WARM MIX FOR PT'S ORAL CONSUMPTION; PT AMBULATED TO SEVERAL TIMES WITH SBA TO VOID IN TOILET; URINE FOUL-SMELLING AND SLIGHTLY HAZY AND LIGHT YELLOW; PT DENIES ADDITIONAL CONCERNS AT THIS TIME.
--- NOTE | 2021-02-27 06:05 | NUR ---
SHIFT SUMMARY PATIENT IS ALERT AND ORIENTED X4. INDEPENDENT WITH REPOSITIONING AND SBA TO THE BATHROOM. GAVE PATIENT ENEMA AND PATIENT HAD BOWEL MOVEMENT BUT STATES SHE STILL FEELS CONSTIPATED, THEN HAD ANOTHER SMALL BOWEL MOVEMENT AND STILL EXPERIENCING DISCOMFORT BUT MAKING PROGRESS. PT COMPLAINED OF ONE EPISODE OF CP THAT LASTED ABOUT A MINUTE. 02 SATS >93% ON RA, SOB WITH ACTIVITY. VSS, NO ACUTE CHANGES, CALL LIGHT IN REACH.
--- NOTE | 2021-02-27 10:57 | NUR ---
PT EXPERIENCING EPISODE OF CHEST PAIN THIS AM. LASTING ABOUT 20 MIN, WITH SOB. VITAL SIGNS STABLE. NO CHANGES IN TELE. PT DESCRIBES PRESSURE IN CHEST. REQUESTING TYLENOL. DR. WELLS AWARE OF CHEST PAIN. DR. CROWDER CONSULTED. PAIN DECREASING. WILL CONTINUE TO MONITOR.
[2021-02-27] MEDS ORDERED: DOCUZEN 8.6-501 EACH PO (12:18)
--- NOTE | 2021-02-27 12:38 | NUR ---
PT ALERT AND ORIENTED X4. ON ROOM AIR SATING ABOVE 94%. SOME SOB WITH EXERTION. UP TO BATHROOM AND WALK AROUND UNIT. TELE SHOWING SINUS WITH HR 70'S. CHEST PAIN EPISODE THIS AM, SEE PREVIOUS NOTE. VITAL SIGNS STABLE. NO CHANGES IN TELE. 2 BOWEL MOVMENTS THIS MORNING WITH A LARGE EPSIODE OF DIARRHEA. RIGHT GROIN SIGHT C/D/I. MINIMAL BRUSING TO SIGHT. PT DENIES PAIN AT RIGHT GROIN SIGHT. SKIN PALE AND FRAGILE, BRUISING SCATTERED THROUGHOUT WELL ABDOMEN. DISCHARGE ORDERS IN PLACE. CALL LIGHT IN REACH. PT CALLING FOR BATHROOM ASSITANCE FOR SAFETY. BED IN LOW LOCKED POSITION. WILL CONTINUE TO MONITOR.
--- NOTE | 2021-02-27 13:37 | NUR ---
DISCHARGE: NO ACUTE CHANGES, PT REMAINS STABLE. VITAL SIGNS STABLE. SEE PREVIOUS NOTES. DISCHARGE INSTRUCTIONS REVIEWED, QUESTIONS ANSWERED. IV TAKEN OUT PER PROTOCOL. TELE REMOVED AND RETURNED. PT LEFT UNIT VIA WHEELCHAIR WITH ALL PERSONAL BELONGINGS.
== END 2021-02-27 13:37 | disposition home or self-care (01) ==
LOC: ER 11:43 → PCU 11:44 → ERHOLD 11:44 → PCU 18:03
PROVIDERS: Internal Medicine Cardiovascular Disease; Physician Assistant; ADMIT Internal Medicine
DX: I25.110 Atherosclerotic heart disease of native coronary artery with unstable angina pectoris (principal); I25.710 Atherosclerosis of autologous vein coronary artery bypass graft(s) with unstable angina pectoris; I25.82 Chronic total occlusion of coronary artery; T82.855A Stenosis of coronary artery stent, initial encounter; R07.89 Other chest pain; J44.9 Chronic obstructive pulmonary disease, unspecified; E03.9 Hypothyroidism, unspecified; I25.2 Old myocardial infarction; K21.9 Gastro-esophageal reflux disease without esophagitis; F32.9 Major depressive disorder, single episode, unspecified; I12.9 Hypertensive chronic kidney disease with stage 1 through stage 4 chronic kidney disease, or unspecified chronic kidney disease; N18.30 Chronic kidney disease, stage 3 unspecified; M79.7 Fibromyalgia; Y84.8 Other medical procedures as the cause of abnormal reaction of the patient, or of later complication, without mention of misadventure at the time of the procedure; E66.9 Obesity, unspecified; Z68.29 Body mass index [BMI] 29.0-29.9, adult; Z88.5 Allergy status to narcotic agent; Z88.2 Allergy status to sulfonamides; Z88.8 Allergy status to other drugs, medicaments and biological substances; Z87.440 Personal history of urinary (tract) infections; Z95.1 Presence of aortocoronary bypass graft; Z95.5 Presence of coronary angioplasty implant and graft; Z96.0 Presence of urogenital implants; Z79.82 Long term (current) use of aspirin; Z99.81 Dependence on supplemental oxygen
CPT/HCPCS: 36415; 71046; 71260; 76937; 80048; 80053; 80061; 83690; 83880; 84484; 85025; 85379; 85610; 93005; 93010; 93306; 93459; 94640; 94760; 96372; 96374; 96376; 99152; 99153; 99285-25; A9270; C1769; C1894; G0278; G0378; J1644; J2250; J2270; J3010; J7030; J7120; Q9967

== ENCOUNTER 2021-07-20 17:36 | Emergency (ER) | payer MEDICARE ==
[~2021-07-20] VITALS: Ht 157.5 cm; Wt 68.0 kg
[~2021-07-20 17:36] MED LIST changes: +DOCUZEN 8.6-501 EACH PO; +KLOR-CON 1010 ME2 PO
[2021-07-20 18:38] LABS: BASOPHILS ABSOLUTE AUTO 0.08 K/mm3 (0.00-0.23); BASOPHILS PERCENT AUTO 1 % (0-2); EOSINOPHILS ABSOLUTE AUTO 0.33 K/mm3 (0.00-0.68); EOSINOPHILS PERCENT AUTO 4 % (0-6); Hematocrit 39.9 % (33.0-51.0); Hemoglobin 12.6 g/dL (11.5-16.0); IMMATURE GRAN ABSOLUTE AUTO 0.05 K/mm3 (0.00-0.10); IMMATURE GRAN PERCENT AUTO 1 % (0-1); LYMPHOCYTES ABSOLUTE AUTO 2.42 K/mm3 (0.84-5.20); LYMPHOCYTES PERCENT AUTO 31 % (21-46); MONOCYTES ABSOLUTE AUTO 0.54 K/mm3 (0.16-1.47); MONOCYTES PERCENT AUTO 7 % (4-13); Mean Corpuscular HGB 30.8 pg (26.0-34.0); Mean Corpuscular HGB Conc 31.6 g/dL (31.5-36.5); Mean Corpuscular Volume 98 fL (80-100); Mean Platelet Volume 10.3 fL (9.1-12.4); NEUTROPHILS ABSOLUTE AUTO 4.35 K/mm3 (1.96-9.15); NEUTROPHILS PERCENT AUTO 56 % (41-73); Platelet Count 294 K/mm3 (150-400); RDW Coefficient Variation 14.8 % (11.7-14.2); RDW Standard Deviation 53.1 fL (35.1-46.3); Red Blood Cell Count 4.09 M/mm3 (3.80-5.20); White Blood Cell Count 7.77 K/mm3 (4.00-11.30)
[2021-07-20 18:58] LABS: Albumin, Blood 3.6 g/dL (3.4-5.0); Bilirubin, Total 0.3 mg/dL (0.1-1.0); Bun/Creatinine Ratio 11.1 (12.0-20.0); Calcium, Blood 9.7 mg/dL (8.5-10.1); Creatinine, Blood 1.35 mg/dL (0.40-1.00); Globulin, Blood 3.6 g/dL (2.2-4.0); Total Protein, Blood 7.2 g/dL (6.4-8.2)
[2021-07-20 19:49] LABS: Source, Urine Clean Catch
[2021-07-20 19:51] LABS: Bilirubin, Urine Neg (Neg); Blood, Urine Neg (Neg); Glucose Qualitative, Urine Neg (Neg); Ketones, Urine Neg (Neg); Leukocyte Esterase, Urine 3+ (Neg); Nitrite, Urine Neg (Neg); Protein, Urine Neg (Neg); Urobilinogen, Urine NORM (Normal)
[2021-07-20 20:06] LABS: Appearance, Urine Hazy (Clear); Color, Urine Yellow (P-Yellow); White Blood Cells, Urine TNTC /hpf (0-5)
[2021-07-20 20:07] LABS: Amorphous Light (0-Heavy); Bacteria Mod /hpf; Red Blood Cells, Urine Not Seen /hpf (0-2); Squamous Epithelial Cells Few /hpf (Few)
[2021-07-20] MEDS ORDERED: Zofran4 MG PO (23:27)
[2021-07-20] MEDS ORDERED: CIPR500 PO (23:27)
== END 2021-07-21 00:06 | disposition home or self-care (01) ==
LOC: ER 17:36
PROVIDERS: Physician Assistant
DX: N12 Tubulo-interstitial nephritis, not specified as acute or chronic (principal); J44.9 Chronic obstructive pulmonary disease, unspecified; E03.9 Hypothyroidism, unspecified; I25.2 Old myocardial infarction; I25.10 Atherosclerotic heart disease of native coronary artery without angina pectoris; N18.9 Chronic kidney disease, unspecified; Z86.73 Personal history of transient ischemic attack (TIA), and cerebral infarction without residual deficits; Z88.5 Allergy status to narcotic agent; Z88.2 Allergy status to sulfonamides; Z88.8 Allergy status to other drugs, medicaments and biological substances; Z79.82 Long term (current) use of aspirin; Z79.899 Other long term (current) drug therapy
CPT/HCPCS: 36415; 74176; 80053; 81001; 83690; 85025; 87077; 87086; 87186; 96365; 96375; 99284-25; J0696; J2270; J2405; J7030

== ENCOUNTER → 2021-07-28 | Outpatient (CLI) | payer MEDICARE ==
[~2021-07-28] MED LIST changes: +Zofran4 MG PO
== END ==
LOC: LAB SHORT 17:52
DX: R10.9 Unspecified abdominal pain (principal); Z88.2 Allergy status to sulfonamides; Z88.8 Allergy status to other drugs, medicaments and biological substances; Z88.5 Allergy status to narcotic agent
CPT/HCPCS: 87086

== ENCOUNTER → 2021-08-01 | Outpatient (CLI) | payer MEDICARE ==
[2021-08-01 18:11] LABS: BASOPHILS ABSOLUTE AUTO 0.06 K/mm3 (0.00-0.23); BASOPHILS PERCENT AUTO 1 % (0-2); EOSINOPHILS ABSOLUTE AUTO 0.22 K/mm3 (0.00-0.68); EOSINOPHILS PERCENT AUTO 3 % (0-6); Hematocrit 39.2 % (33.0-51.0); Hemoglobin 12.3 g/dL (11.5-16.0); IMMATURE GRAN ABSOLUTE AUTO 0.05 K/mm3 (0.00-0.10); IMMATURE GRAN PERCENT AUTO 1 % (0-1); LYMPHOCYTES ABSOLUTE AUTO 2.57 K/mm3 (0.84-5.20); LYMPHOCYTES PERCENT AUTO 31 % (21-46); MONOCYTES ABSOLUTE AUTO 0.55 K/mm3 (0.16-1.47); MONOCYTES PERCENT AUTO 7 % (4-13); Mean Corpuscular HGB 29.9 pg (26.0-34.0); Mean Corpuscular HGB Conc 31.4 g/dL (31.5-36.5); Mean Corpuscular Volume 95 fL (80-100); Mean Platelet Volume 10.3 fL (9.1-12.4); NEUTROPHILS ABSOLUTE AUTO 4.98 K/mm3 (1.96-9.15); NEUTROPHILS PERCENT AUTO 59 % (41-73); Platelet Count 230 K/mm3 (150-400); RDW Coefficient Variation 14.6 % (11.7-14.2); RDW Standard Deviation 51.3 fL (35.1-46.3); Red Blood Cell Count 4.12 M/mm3 (3.80-5.20); White Blood Cell Count 8.43 K/mm3 (4.00-11.30)
== END | disposition home or self-care (01) ==
LOC: LAB SHORT 18:07
PROVIDERS: Physician Assistant
DX: R10.32 Left lower quadrant pain (principal)
CPT/HCPCS: 85025

== ENCOUNTER → 2022-01-29 | Outpatient (CLI) | payer MEDICARE | END | disposition home or self-care (01) | LOC: LAB SHORT 10:02 → LAB 10:02 | DX: R82.81 Pyuria (principal) | CPT/HCPCS: 87077; 87086; 87186 ==

== ENCOUNTER → 2022-01-29 | Outpatient (CLI) | payer MEDICARE ==
[2022-01-29 10:01] LABS: BASOPHILS ABSOLUTE AUTO 0.05 K/mm3 (0.00-0.23); BASOPHILS PERCENT AUTO 1 % (0-2); EOSINOPHILS ABSOLUTE AUTO 0.16 K/mm3 (0.00-0.68); EOSINOPHILS PERCENT AUTO 3 % (0-6); Hematocrit 42.8 % (33.0-51.0); Hemoglobin 13.3 g/dL (11.5-16.0); IMMATURE GRAN ABSOLUTE AUTO 0.04 K/mm3 (0.00-0.10); IMMATURE GRAN PERCENT AUTO 1 % (0-1); LYMPHOCYTES ABSOLUTE AUTO 1.38 K/mm3 (0.84-5.20); LYMPHOCYTES PERCENT AUTO 22 % (21-46); MONOCYTES ABSOLUTE AUTO 0.43 K/mm3 (0.16-1.47); MONOCYTES PERCENT AUTO 7 % (4-13); Mean Corpuscular HGB 30.4 pg (26.0-34.0); Mean Corpuscular HGB Conc 31.1 g/dL (31.5-36.5); Mean Corpuscular Volume 98 fL (80-100); Mean Platelet Volume 10.3 fL (9.1-12.4); NEUTROPHILS ABSOLUTE AUTO 4.13 K/mm3 (1.96-9.15); NEUTROPHILS PERCENT AUTO 67 % (41-73); Platelet Count 233 K/mm3 (150-400); RDW Coefficient Variation 15.5 % (11.7-14.2); RDW Standard Deviation 56.1 fL (35.1-46.3); Red Blood Cell Count 4.37 M/mm3 (3.80-5.20); White Blood Cell Count 6.19 K/mm3 (4.00-11.30)
[2022-01-29 10:29] LABS: Albumin, Blood 3.6 g/dL (3.4-5.0); Albumin/Globulin Ratio 1.2 (0.8-1.8); Bilirubin, Total 0.4 mg/dL (0.1-1.0); Bun/Creatinine Ratio 12.3 (12.0-20.0); Calcium, Blood 7.6 mg/dL (8.5-10.1); Creatinine, Blood 1.06 mg/dL (0.40-1.00); Total Protein, Blood 6.6 g/dL (6.4-8.2)
== END | disposition home or self-care (01) ==
LOC: LAB SHORT 09:52 → LAB 09:52
PROVIDERS: Physician Assistant
DX: R10.9 Unspecified abdominal pain (principal)
CPT/HCPCS: 80053; 82150; 83690; 85025

== ENCOUNTER 2022-04-09 12:06 | Emergency (ER) | payer MEDICARE, OTHER ==
[~2022-04-09] VITALS: Ht 157.5 cm; Wt 66.7 kg
[~2022-04-09 12:06] MED LIST changes: +ONDA4ODT MM
[2022-04-09 12:58] LABS: BASOPHILS ABSOLUTE AUTO 0.04 K/mm3 (0.00-0.23); BASOPHILS PERCENT AUTO 1 % (0-2); EOSINOPHILS PERCENT AUTO 3 % (0-6); Hematocrit 43.7 % (33.0-51.0); Hemoglobin 13.9 g/dL (11.5-16.0); IMMATURE GRAN ABSOLUTE AUTO 0.06 K/mm3 (0.00-0.10); IMMATURE GRAN PERCENT AUTO 1 % (0-1); LYMPHOCYTES ABSOLUTE AUTO 1.82 K/mm3 (0.84-5.20); LYMPHOCYTES PERCENT AUTO 26 % (21-46); MONOCYTES ABSOLUTE AUTO 0.42 K/mm3 (0.16-1.47); MONOCYTES PERCENT AUTO 6 % (4-13); Mean Corpuscular HGB 30.2 pg (26.0-34.0); Mean Corpuscular HGB Conc 31.8 g/dL (31.5-36.5); Mean Corpuscular Volume 95 fL (80-100); Mean Platelet Volume 10.4 fL (9.1-12.4); NEUTROPHILS ABSOLUTE AUTO 4.57 K/mm3 (1.96-9.15); NEUTROPHILS PERCENT AUTO 64 % (41-73); Platelet Count 237 K/mm3 (150-400); RDW Coefficient Variation 15.3 % (11.7-14.2); RDW Standard Deviation 53.6 fL (35.1-46.3); Red Blood Cell Count 4.61 M/mm3 (3.80-5.20); White Blood Cell Count 7.11 K/mm3 (4.00-11.30)
[2022-04-09 12:59] LABS: Albumin, Blood 3.9 g/dL (3.4-5.0); Albumin/Globulin Ratio 1.1 (0.8-1.8); Bilirubin, Total 0.5 mg/dL (0.1-1.0); Bun/Creatinine Ratio 15.2 (12.0-20.0); Calcium, Blood 9.7 mg/dL (8.5-10.1); Creatinine, Blood 1.12 mg/dL (0.40-1.00); Globulin, Blood 3.7 g/dL (2.2-4.0); Potassium, Blood 3.4 mmol/L (3.5-5.5); Total Protein, Blood 7.6 g/dL (6.4-8.2)
[2022-04-09 13:19] LABS: Source, Urine Clean Catch
[2022-04-09 13:42] LABS: Appearance, Urine Hazy (Clear); Bilirubin, Urine Neg (Neg); Blood, Urine Neg (Neg); Color, Urine Yellow (P-Yellow); Glucose Qualitative, Urine Neg (Neg); Ketones, Urine Neg (Neg); Leukocyte Esterase, Urine 1+ (Neg); Nitrite, Urine Pos (Neg); Protein, Urine Neg (Neg); Specific Gravity, Urine 1.025 (1.003-1.022); Urobilinogen, Urine NORM (Normal)
[2022-04-09 14:46] LABS: Bacteria Many /hpf; Red Blood Cells, Urine 0-2 /hpf (0-2); Squamous Epithelial Cells Few /hpf (Few)
[2022-04-09] MEDS ORDERED: CEFD300 PO (15:48)
== END 2022-04-09 17:22 | disposition home or self-care (01) ==
LOC: ER 12:06
PROVIDERS: Student in an Organized Health Care Education/Training Program
DX: N39.0 Urinary tract infection, site not specified (principal); E87.5 Hyperkalemia; R07.89 Other chest pain; R00.1 Bradycardia, unspecified; J44.9 Chronic obstructive pulmonary disease, unspecified; E03.9 Hypothyroidism, unspecified; I25.10 Atherosclerotic heart disease of native coronary artery without angina pectoris; N18.30 Chronic kidney disease, stage 3 unspecified; Z79.82 Long term (current) use of aspirin; Z79.899 Other long term (current) drug therapy; Z79.02 Long term (current) use of antithrombotics/antiplatelets
CPT/HCPCS: 36415; 71045; 80053; 81001; 83735; 84484; 85025; 87077; 87086; 87186; 93005; 93010; 93246; 96374; 96375; 99285-25; A9270; J0696; J3010

== ENCOUNTER → 2022-04-20 | Outpatient (CLI) | payer MEDICARE, OTHER ==
[~2022-04-20] MED LIST changes: +CEFD300 PO
== END | disposition home or self-care (01) ==
LOC: LAB SHORT 17:30 → LAB 17:30
DX: N18.9 Chronic kidney disease, unspecified (principal); N32.81 Overactive bladder; R26.89 Other abnormalities of gait and mobility; R10.9 Unspecified abdominal pain; Z87.442 Personal history of urinary calculi
CPT/HCPCS: 87086

== ENCOUNTER 2022-05-12 12:33 | Emergency (ER) | payer MEDICARE, OTHER ==
[~2022-05-12] VITALS: Ht 157.5 cm; Wt 64.4 kg
[2022-05-12 13:40] LABS: BASOPHILS ABSOLUTE AUTO 0.06 K/mm3 (0.00-0.23); BASOPHILS PERCENT AUTO 1 % (0-2); EOSINOPHILS ABSOLUTE AUTO 0.17 K/mm3 (0.00-0.68); EOSINOPHILS PERCENT AUTO 2 % (0-6); Hematocrit 43.6 % (33.0-51.0); Hemoglobin 14.1 g/dL (11.5-16.0); IMMATURE GRAN ABSOLUTE AUTO 0.04 K/mm3 (0.00-0.10); IMMATURE GRAN PERCENT AUTO 1 % (0-1); LYMPHOCYTES ABSOLUTE AUTO 1.65 K/mm3 (0.84-5.20); LYMPHOCYTES PERCENT AUTO 22 % (21-46); MONOCYTES PERCENT AUTO 8 % (4-13); Mean Corpuscular HGB 30.7 pg (26.0-34.0); Mean Corpuscular HGB Conc 32.3 g/dL (31.5-36.5); Mean Corpuscular Volume 95 fL (80-100); Mean Platelet Volume 10.6 fL (9.1-12.4); NEUTROPHILS ABSOLUTE AUTO 5.05 K/mm3 (1.96-9.15); NEUTROPHILS PERCENT AUTO 67 % (41-73); Platelet Count 252 K/mm3 (150-400); RDW Standard Deviation 52.4 fL (35.1-46.3); White Blood Cell Count 7.57 K/mm3 (4.00-11.30)
[2022-05-12 13:55] LABS: Albumin, Blood 3.7 g/dL (3.4-5.0); Albumin/Globulin Ratio 1.1 (0.8-1.8); Bilirubin, Total 0.3 mg/dL (0.1-1.0); Bun/Creatinine Ratio 10.2 (12.0-20.0); Creatinine, Blood 1.28 mg/dL (0.40-1.00); Globulin, Blood 3.5 g/dL (2.2-4.0); Potassium, Blood 3.5 mmol/L (3.5-5.5); Total Protein, Blood 7.2 g/dL (6.4-8.2)
[2022-05-12] MEDS ORDERED: MECL25 PO (19:50)
== END 2022-05-12 19:52 | disposition home or self-care (01) ==
LOC: ER 12:33
PROVIDERS: Student in an Organized Health Care Education/Training Program
DX: R42 Dizziness and giddiness (principal); E86.0 Dehydration; R53.1 Weakness; T42.6X5A Adverse effect of other antiepileptic and sedative-hypnotic drugs, initial encounter; T44.7X5A Adverse effect of beta-adrenoreceptor antagonists, initial encounter; J44.9 Chronic obstructive pulmonary disease, unspecified; E03.9 Hypothyroidism, unspecified; N18.9 Chronic kidney disease, unspecified; I25.10 Atherosclerotic heart disease of native coronary artery without angina pectoris; I25.2 Old myocardial infarction; Z95.1 Presence of aortocoronary bypass graft; Z79.82 Long term (current) use of aspirin; Z79.02 Long term (current) use of antithrombotics/antiplatelets; Z79.899 Other long term (current) drug therapy; Z88.5 Allergy status to narcotic agent; Z88.2 Allergy status to sulfonamides; Z88.8 Allergy status to other drugs, medicaments and biological substances; Y92.9 Unspecified place or not applicable
CPT/HCPCS: 36415; 80053; 84484; 85025; 93005; 93010; A9270; J7030

== ENCOUNTER → 2022-09-07 | Outpatient (CLI) | payer MEDICARE, OTHER ==
[~2022-09-07] MED LIST changes: +MECL25 PO
[2022-09-07 15:31] LABS: Hematocrit 47.9 % (33.0-51.0); Hemoglobin 15.5 g/dL (11.5-16.0); Mean Corpuscular HGB 31.1 pg (26.0-34.0); Mean Corpuscular HGB Conc 32.4 g/dL (31.5-36.5); Mean Corpuscular Volume 96 fL (80-100); Mean Platelet Volume 10.4 fL (9.1-12.4); Platelet Count 227 K/mm3 (150-400); RDW Coefficient Variation 14.2 % (11.7-14.2); RDW Standard Deviation 50.4 fL (35.1-46.3); Red Blood Cell Count 4.99 M/mm3 (3.80-5.20); White Blood Cell Count 7.53 K/mm3 (4.00-11.30)
[2022-09-07 15:42] LABS: Albumin, Blood 4.1 g/dL (3.4-5.0); Bilirubin, Total 0.6 mg/dL (0.1-1.0); Bun/Creatinine Ratio 17.3 (12.0-20.0); Calcium, Blood 9.5 mg/dL (8.5-10.1); Creatinine, Blood 1.39 mg/dL (0.40-1.00); Globulin, Blood 4.3 g/dL (2.2-4.0); Potassium, Blood 3.3 mmol/L (3.5-5.5); Total Protein, Blood 8.4 g/dL (6.4-8.2)
[2022-09-07 17:23] LABS: BASOPHILS PERCENT MAN 0 % (0-2); EOSINOPHILS PERCENT MAN 0 % (0-6); LYMPHOCYTES ABSOLUTE MAN 3.31 K/mm3 (0.84-5.20); LYMPHOCYTES PERCENT MAN 44 % (21-46); MONOCYTES PERCENT MAN 4 % (4-13); NEUTROPHILS ABSOLUTE MAN 3.91 K/mm3 (1.96-9.15); SEG NEUTROPHILS PERCENT MAN 52 % (41-73); TOTAL CELLS COUNTED 100
== END | disposition home or self-care (01) ==
LOC: LAB SHORT 15:25
PROVIDERS: Physician Assistant
DX: R06.00 Dyspnea, unspecified (principal)
CPT/HCPCS: 80053; 83880; 84484; 85025

== ENCOUNTER → 2022-09-08 | Outpatient (CLI) | payer MEDICARE, OTHER ==
[2022-09-08 17:05] LABS: BASOPHILS ABSOLUTE AUTO 0.03 K/mm3 (0.00-0.23); BASOPHILS PERCENT AUTO 0 % (0-2); EOSINOPHILS PERCENT AUTO 0 % (0-6); Hematocrit 43.6 % (33.0-51.0); Hemoglobin 14.4 g/dL (11.5-16.0); IMMATURE GRAN ABSOLUTE AUTO 0.13 K/mm3 (0.00-0.10); IMMATURE GRAN PERCENT AUTO 1 % (0-1); LYMPHOCYTES ABSOLUTE AUTO 2.12 K/mm3 (0.84-5.20); LYMPHOCYTES PERCENT AUTO 14 % (21-46); MONOCYTES ABSOLUTE AUTO 1.03 K/mm3 (0.16-1.47); MONOCYTES PERCENT AUTO 7 % (4-13); Mean Corpuscular HGB 31.1 pg (26.0-34.0); Mean Corpuscular Volume 94 fL (80-100); Mean Platelet Volume 10.4 fL (9.1-12.4); NEUTROPHILS ABSOLUTE AUTO 12.22 K/mm3 (1.96-9.15); NEUTROPHILS PERCENT AUTO 79 % (41-73); Platelet Count 247 K/mm3 (150-400); RDW Coefficient Variation 14.1 % (11.7-14.2); RDW Standard Deviation 48.5 fL (35.1-46.3); Red Blood Cell Count 4.63 M/mm3 (3.80-5.20); White Blood Cell Count 15.53 K/mm3 (4.00-11.30)
[2022-09-08 17:08] LABS: Bun/Creatinine Ratio 16.4 (12.0-20.0); Calcium, Blood 9.2 mg/dL (8.5-10.1); Creatinine, Blood 1.16 mg/dL (0.40-1.00); Potassium, Blood 3.3 mmol/L (3.5-5.5)
== END | disposition home or self-care (01) ==
LOC: LAB 16:58 → LAB SHORT 16:58
PROVIDERS: Physician Assistant
DX: G47.34 Idiopathic sleep related nonobstructive alveolar hypoventilation (principal)
CPT/HCPCS: 80048; 85025

== ENCOUNTER 2023-02-07 14:58 | Emergency (ER) | payer MEDICARE, OTHER ==
[~2023-02-07] VITALS: Ht 157.5 cm; Wt 63.5 kg
[2023-02-07 15:15] VITALS: BP 114/75
[2023-02-07 15:38] LABS: BASOPHILS ABSOLUTE AUTO 0.07 K/mm3 (0.00-0.23); BASOPHILS PERCENT AUTO 1 % (0-2); EOSINOPHILS ABSOLUTE AUTO 0.29 K/mm3 (0.00-0.68); EOSINOPHILS PERCENT AUTO 4 % (0-6); Hematocrit 42.9 % (33.0-51.0); Hemoglobin 13.5 g/dL (11.5-16.0); IMMATURE GRAN ABSOLUTE AUTO 0.04 K/mm3 (0.00-0.10); IMMATURE GRAN PERCENT AUTO 1 % (0-1); LYMPHOCYTES ABSOLUTE AUTO 1.57 K/mm3 (0.84-5.20); LYMPHOCYTES PERCENT AUTO 19 % (21-46); MONOCYTES PERCENT AUTO 8 % (4-13); Mean Corpuscular HGB 28.2 pg (26.0-34.0); Mean Corpuscular HGB Conc 31.5 g/dL (31.5-36.5); Mean Corpuscular Volume 90 fL (80-100); Mean Platelet Volume 10.2 fL (9.1-12.4); NEUTROPHILS ABSOLUTE AUTO 5.62 K/mm3 (1.96-9.15); NEUTROPHILS PERCENT AUTO 68 % (41-73); Platelet Count 241 K/mm3 (150-400); RDW Coefficient Variation 13.7 % (11.7-14.2); RDW Standard Deviation 45.1 fL (35.1-46.3); Red Blood Cell Count 4.78 M/mm3 (3.80-5.20); White Blood Cell Count 8.29 K/mm3 (4.00-11.30)
[2023-02-07 16:03] LABS: Albumin, Blood 2.9 g/dL (3.4-5.0); Albumin/Globulin Ratio 0.7 (0.8-1.8); Bilirubin, Total 0.5 mg/dL (0.1-1.0); Bun/Creatinine Ratio 13.5 (12.0-20.0); Calcium, Blood 8.6 mg/dL (8.5-10.1); Creatinine, Blood 1.11 mg/dL (0.40-1.00); Globulin, Blood 3.9 g/dL (2.2-4.0); Potassium, Blood 3.6 mmol/L (3.5-5.5); Total Protein, Blood 6.8 g/dL (6.4-8.2)
== END 2023-02-07 22:05 | disposition home or self-care (01) ==
LOC: ER 14:58
PROVIDERS: Physician Assistant
DX: I49.1 Atrial premature depolarization (principal); R00.2 Palpitations; Z88.8 Allergy status to other drugs, medicaments and biological substances; Z88.5 Allergy status to narcotic agent; Z88.2 Allergy status to sulfonamides; Z79.899 Other long term (current) drug therapy; Z79.82 Long term (current) use of aspirin; J44.9 Chronic obstructive pulmonary disease, unspecified; E03.9 Hypothyroidism, unspecified; N18.9 Chronic kidney disease, unspecified; I25.10 Atherosclerotic heart disease of native coronary artery without angina pectoris
CPT/HCPCS: 80053; 85025; 93005; 93010; 99284-25

== ENCOUNTER 2023-02-20 16:39 | Emergency (ER) | payer MEDICARE, OTHER ==
[~2023-02-20] VITALS: Ht 157.5 cm; Wt 62.1 kg
[2023-02-20 16:54] VITALS: BP 148/101
== END 2023-02-20 18:56 | disposition home or self-care (01) ==
LOC: ER 16:39
DX: S00.83XA Contusion of other part of head, initial encounter (principal); S40.012A Contusion of left shoulder, initial encounter; J44.9 Chronic obstructive pulmonary disease, unspecified; E03.9 Hypothyroidism, unspecified; N18.9 Chronic kidney disease, unspecified; I25.2 Old myocardial infarction; I25.10 Atherosclerotic heart disease of native coronary artery without angina pectoris; W19.XXXA Unspecified fall, initial encounter; Z79.82 Long term (current) use of aspirin; Z79.890 Hormone replacement therapy; Z79.899 Other long term (current) drug therapy; Z88.8 Allergy status to other drugs, medicaments and biological substances; Z88.5 Allergy status to narcotic agent; Z86.73 Personal history of transient ischemic attack (TIA), and cerebral infarction without residual deficits; Z95.1 Presence of aortocoronary bypass graft; Z95.5 Presence of coronary angioplasty implant and graft
CPT/HCPCS: 70450

== ENCOUNTER 2023-04-07 10:08 | Inpatient (IN) | payer MEDICARE, OTHER ==
[~2023-04-07] VITALS: Ht 157.5 cm; Wt 66.3 kg
[2023-04-07] VITALS (7 sets, daily range): BP systolic 97–159; BP diastolic 67–90
[2023-04-07 10:39] LABS: BASOPHILS ABSOLUTE AUTO 0.04 K/mm3 (0.00-0.23); BASOPHILS PERCENT AUTO 1 % (0-2); EOSINOPHILS ABSOLUTE AUTO 0.36 K/mm3 (0.00-0.68); EOSINOPHILS PERCENT AUTO 5 % (0-6); Hematocrit 42.5 % (33.0-51.0); Hemoglobin 13.6 g/dL (11.5-16.0); IMMATURE GRAN ABSOLUTE AUTO 0.02 K/mm3 (0.00-0.10); IMMATURE GRAN PERCENT AUTO 0 % (0-1); LYMPHOCYTES ABSOLUTE AUTO 2.54 K/mm3 (0.84-5.20); LYMPHOCYTES PERCENT AUTO 35 % (21-46); MONOCYTES ABSOLUTE AUTO 0.59 K/mm3 (0.16-1.47); MONOCYTES PERCENT AUTO 8 % (4-13); Mean Corpuscular HGB 28.8 pg (26.0-34.0); Mean Corpuscular Volume 90 fL (80-100); Mean Platelet Volume 10.1 fL (9.1-12.4); NEUTROPHILS ABSOLUTE AUTO 3.68 K/mm3 (1.96-9.15); NEUTROPHILS PERCENT AUTO 51 % (41-73); Platelet Count 233 K/mm3 (150-400); RDW Coefficient Variation 14.4 % (11.7-14.2); RDW Standard Deviation 47.5 fL (35.1-46.3); Red Blood Cell Count 4.73 M/mm3 (3.80-5.20); White Blood Cell Count 7.23 K/mm3 (4.00-11.30)
[2023-04-07 11:00] LABS: Albumin, Blood 3.1 g/dL (3.4-5.0); Albumin/Globulin Ratio 0.9 (0.8-1.8); Bilirubin, Total 0.4 mg/dL (0.1-1.0); Bun/Creatinine Ratio 18.3 (12.0-20.0); Calcium, Blood 8.1 mg/dL (8.5-10.1); Creatinine, Blood 1.04 mg/dL (0.40-1.00); Globulin, Blood 3.6 g/dL (2.2-4.0); Potassium, Blood 3.6 mmol/L (3.5-5.5); Total Protein, Blood 6.7 g/dL (6.4-8.2)
--- NOTE | 2023-04-07 15:52 | NUR ---
ADMISSION: RECEIVED REPORT FROM PAU OWUSU. PT TRANSFERRED TO [facility] @1450 VIA GURNEY, ABLE TO TRANSFER VIA SBA TO HOSPITAL BED. PT ALERT AND ORIENTED X4, ABLE TO FOLLOW COMMANDS AND MAKE NEEDS KNOWN. BP AND HR STABLE. AFEBRILE. SATS >98% ON ROOM AIR. PT WEARS 2L NC PRN AT BASELINE. LUNG SOUNDS CLEAR IN UPPER, DIM IN BASES, RESPIRATIONS EVEN AND UNLABORED. BP STABLE, HR SB 50'S, PT WITH NO COMPLAINTS OF CP/PRESSURE AT THIS TIME. PULSES STRONG THROUGHOUT. CBG 89. SCABS NOTED IN UPPER EXTREMEITES. PT ORIENTED TO ROOM AND CALL LIGHT SYSTEM. PATIENT EDUCATED ON RISK OF IGNITION SOURCES AND RISK OF OXYGEN IN USE. PT DENIES SMOKING, VERBALIZES UNDERSTANDING.
--- NOTE | 2023-04-07 17:08 | NUR ---
SHIFT SUMMARY: NO ACUTE CHANGES SINCE ADMISSION. BP STABLE, HR SB 50'S, AFEBRILE, SATS >98% ON ROOM AIR. PT RATES 0/10 CHEST PAIN. PLAN FOR POSSIBLE STRESS TEST IN AM. BED IN LOW, CALL LIGHT IN REACH, WILL CONTINUE TO MONITOR.
--- NOTE | 2023-04-07 21:07 | NUR ---
ASSUMED PT CARE FORM ANIL OWUSU ON . A&OX4. COMPLAINING OF CHEST PAIN THAT TRAVELS DOWN LEFT ARM, STARTS 1/10 THEN INCREASES TO 4/10. NITRO X 3 GIVEN WITH RELIEF BUT THEN PAIN RETURNS AFTER 1-2 MINUTES. NOT CHANGES NOTED IN TELE AT THIS TIME, EKG TAKEN, DR. MIX INFORMED. ADDITIONAL ORDERS PLACED FOR PAIN CONTROL. MEDICATIONS GIVEN, SEE EMAR. PT REPORTS PAIN HAS IMPROVED AT THIS TIME. HR SR/SB 50-70'S. O2 SASTS MAINTAINED ON RA > 92%. BP DECREASED WITH NITRO DOSING BUT QUICKLY RECOVERY, RECORDED IN PT CHART. LEFT RESTING IN BED. CALL LIGHT IN REACH.
[2023-04-08] VITALS (10 sets, daily range): BP systolic 96–149; BP diastolic 67–96
[2023-04-08] MEDS ORDERED: HYDHCL25 PO (00:25)
[2023-04-08 04:37] LABS: Hematocrit 37.8 % (33.0-51.0); Hemoglobin 12.3 g/dL (11.5-16.0); Mean Corpuscular HGB 28.7 pg (26.0-34.0); Mean Corpuscular HGB Conc 32.5 g/dL (31.5-36.5); Mean Corpuscular Volume 88 fL (80-100); Mean Platelet Volume 10.2 fL (9.1-12.4); Platelet Count 209 K/mm3 (150-400); RDW Coefficient Variation 14.4 % (11.7-14.2); RDW Standard Deviation 46.5 fL (35.1-46.3); Red Blood Cell Count 4.28 M/mm3 (3.80-5.20); White Blood Cell Count 6.84 K/mm3 (4.00-11.30)
[2023-04-08 05:12] LABS: Alanine Aminotransfer (ALT/SGP 12 U/L (12-78); Albumin, Blood 2.7 g/dL (3.4-5.0); Albumin/Globulin Ratio 0.8 (0.8-1.8); Alk Phos 60 U/L (50-136); Anion Gap 5 mmol/L (6-16); Aspartate Aminotrans (AST/SGOT 16 U/L (12-37); Bilirubin, Total 0.3 mg/dL (0.1-1.0); Blood Urea Nitrogen 16 mg/dL (8-24); Bun/Creatinine Ratio 17.4 (12.0-20.0); CHOL/HDL RATIO 3.8; CO2, Blood 25 mmol/L (21-32); Calcium, Blood 7.5 mg/dL (8.5-10.1); Chloride, Blood 112 mmol/L (98-108); Cholesterol 150 mg/dL (50-200); Creatinine, Blood 0.92 mg/dL (0.40-1.00); Globulin, Blood 3.2 g/dL (2.2-4.0); Glomerular Filtration Rate 66 (60-); Glucose, Blood 93 mg/dL (70-99); HDL Cholesterol 40 mg/dL (>39); LDL/HDL RATIO 2.3; Low Density Lipoprotein Chol 90 mg/dL (0-110); Magnesium, Blood 2.3 mg/dL (1.6-2.4); Potassium, Blood 3.9 mmol/L (3.5-5.5); Sodium, Blood 142 mmol/L (136-145); Total Protein, Blood 5.9 g/dL (6.4-8.2); Triglycerides 99 mg/dL (30-160); Very Low Density Lipoprot Chol 19 mg/dL (6-32)
--- NOTE | 2023-04-08 05:35 | NUR ---
SHIFT SUMMARY: NO ACUTE CHANGES NOTED DURING THIS SHIFT. PT SLEPT THROUGHOUT SHIFT. O2 SATS > 92% ON RA WHEN AWAKE, OCCASIONAL DESATURTIONS TO 88% WHILE SLEEPING WITH A QUICK INCREASE BACK INTO THE 90'S. HR CONTINUES SR/SB. SBP 90-100'S, PT DENIES DIZZIENESS/LIGHTHEADEDNESS. MAP > 65%. PT COMPLAINTS OF SLIGHT CHEST PAIN, 10/09, AFTER AMBULATING. DECLINES PAIN MEDICATION AT THIS TIME. WILL MONITOR. CALL LIGHT IN REACH. BED IN LOW POSITION.
[2023-04-08 06:09] LABS: HEMOGLOBIN A1C 5.6 % (4.8-5.6)
--- NOTE | 2023-04-08 19:15 | NUR ---
SHIFT SUMMARY ALERT AND ORIENTED. SBA TO BATHROOM WITH FWW. NPO IN AM, WENT FOR RESTING PORTION OF CARDIAC STRESS TEST AT 1500. 2ND PART IS PLANNED TO BE COMPLETED TOMORROW 04/09/23. REPORTED MILD CHEST DISCOMFORT X2, RESOLVED SPONTANEOUSLY. TOLERATING CARDIAC DIET AND LIQUIDS IN EVENING. VOIDING WELL. HELD ISOSORBIDE FOR STRESS TEST, HELD AM METOPROLOL FOR SBP IN 90S. AFTERNOON SBP 149, SPOKE WITH DR MORRISON AND GAVE 1 NON-SCHEDULED DOSE OF METOPROLOL. REPORT GIVEN TO RECYCLABLE MATERIALS SORTER RN.
--- NOTE | 2023-04-08 20:17 | NUR ---
ASSUMED PT CARE FROM VINOD OWUSU ON . A&OX4. COMPLAINING OF CHEST PAIN/PRESSURES THAT IS INTERMITTENT. MEDICATED FOR CHEST PAIN, SEE EMAR. PT REPORTS ONLY SLIGHT ACHE NOW, WILL MONITOR. HR SR 70'S DURING CHEST DISCOMFORT. BP STABLE, SEE PT RECORD. O2 SATS > 92% ON RA. PT TOLERATED AMBULATING IN ROOM WITH STEADY GAIT, POSTURE ERECT. VOIDING CLEAR, PALE, YELLOW URINE. DENIES NEEDS AT THIS TIME. CALL LIGHT IN REACH.
[2023-04-09] VITALS (10 sets, daily range): BP systolic 101–168; BP diastolic 64–92
--- NOTE | 2023-04-09 03:28 | NUR ---
INTERMITTENT CHEST PAIN DURING NIGHT, PRIMARILY WITH AMBULATING TO THE BATHROOM. MEDICATED WITH GOOD RETSULTS, SEE EMAR. CALL LIGHT IN REACH. DENIES NEEDS AT THIS TIME.
--- NOTE | 2023-04-09 10:25 | NUR ---
AM NOTES: PT DENIES CHEST PAIN/PRESSURE THIS MORNING. ALERT AND ORIENTED X4 AT BASELINE, ABLE TO AMBULATE TO THE BATHROOM VIA WALKER SBA. VITALS HRR SR/SB 55-60'S, SBP 140'S, SATS ABOVE 92% ON RA, AFEBRILE. PT AWAITING FOR SECOND PORTION OF STRESS TEST TODAY HAD BREAKFAST THIS MORNING NPO AFTER TIL 1300 THIS AFTERNOON PT WAS INSTRUCTED AND VERBALIZED UNDERSTANDING. NO OTHER ISSUES AT THIS TIME, PT HAS BEEN CALLING APPROPRIATELY, WILL CONTINUE TO MONITOR
--- NOTE | 2023-04-09 10:30 | NUR ---
AM NOTES: PT STILL HAVING CHEST PAIN 4/10 UPON SHIFT CHANGE THAT RADIATES TO THE LEFT ARM AFTER MED PASS PAIN HAS INCREASED TO 6/10, ECHO WAS DONE AND DR ASCENCIO SAW THE PT, PLAN FOR ANGIO TODAY, PT HAS BEEN NPO SINCE MIDNIGHT. ONE TIME VERBAL ORDER OF DILAUDID 1MG WAS GIVEN. NORMAL SALINE AT 125MLS/HR WAS DC'D WELL. PT HAS BEEN GOING TO THE BATHROOM SBA, CALLS APPROPRIATELE. NICOTINE OATCH IN PLACE, PT WAS EDUCATED ABOUT IGNITION RISK AND SMOKING POLICY, PRECAUTIONS. PT VERBALIZED UNDERSTANDING. VITALS HRR SR/SB 55-60'S, SATS ABOVE 95% ON 2L OF O2, SBP 110'S, AFEBRILE. NO OTHER ISSUES AT THIS TIME CALL LIGHTS IN REACH WILL CONTINUE TO MONITOR
--- NOTE | 2023-04-09 14:36 | NUR ---
LEXISCAN 0.4 MG WAS ADMINISTERED IV DURING STRESS TEST.
--- NOTE | 2023-04-09 17:51 | NUR ---
PT SUMMARY: SEE AM NOTES. SECOND PORTION OF STRESS TEST DONE THIS AFTERNOON AND GOT RESULTED NO ABNORMALITIES SEEN EF AT 79%. ORANGE GROWER WAS CONSULTED PT KEEPS GETTING INTERMITTENT CHEST PAIN, NITRO DOSE X2 GIVEN THIS AFTERNOON. TYLENOL WAS GIVEN THIS MORNING BEFORE STRESS TEST. VITALS HRR SR/SB 50-70'S, SBP 130-140'S, SATS ABOVE 93% ON RA, AFEBRILE. PLAN FOR ANGIO TOMORROW 04/10/23 TO KEEP PT NPO AFTER MIDNIGHT. DR BOLDEN WAS ABLE TO DISCUSS PLAN OF CARE WITH THE PT. IMDUR 30MG BID WAS RESUMED. NO OTHER ISSUES AT THIS TIME, PT CURRENTLY EATING DINNER. WILL CONTINUE TO MONITOR PT IS A NON SMOKER, EDUCATED ABOUT IGNITION RISK, SMOKING POLICY AND SAFETY PRECAUTION.
[2023-04-10] VITALS (8 sets, daily range): BP systolic 105–151; BP diastolic 66–92
--- NOTE | 2023-04-10 06:45 | NUR ---
Pt slept well overnight. VSS. SR/SB on telemetry. No complaints of pain or discomfort. Discussed ignition risk education and pt verbalized understanding. NPO pending cardiology recommendation.
--- NOTE | 2023-04-10 08:59 | NUR ---
AM NOTE: PT KEPT NPO SINCE MIDNIGHT AWAITING FOR SHINGLE INSPECTOR TO SEE PT FOR POSSIBLE ANGIO. PT STILL HAVING INTERMITTENT CHEST PAIN LAST PAIN ASSESSMENT WAS 2/10 REFUSED ANY MEDS AT THIS TIME STATED THAT THE PRESSURE PAIN GOES AWAY ON AND OFF. PT HAD A SHOWER THIS MORNING WITH NO ISSUES OR CHEST PAIN. VITALS HAS BEEN STABLE. NOW CURRENTLY BACK IN BED, CALL LIGHTS IN REACH WILL CONTINUE TO MONITOR
[2023-04-11] VITALS (16 sets, daily range): BP systolic 2–144; BP diastolic 68–82
--- NOTE | 2023-04-11 06:08 | NUR ---
END OF SHIFT SUMMARY NO ACUTE EVENTS OVERNIGHT; SHE WAS ABLE TO SLEEP FOR SEVERAL HOURS. SHE IS A/O X4 AND ABLE TO MAKE HER NEEDS KNOWN; AMBULATES WELL INDEPENDENTLY; STRANGTH IMPROVING. SPO2 >95% ON RA; NO DYSPNEA NOTED. HR AND BP STABLE; PT STATES CHEST PAIN IS MUCH IMPROVED WITH NITRO PASTE; SHE WOKE UP THIS AM WITH 0/10 CHEST PAIN. TOLERATED PO INTAKE UNTIL 0000 AND IS NOW NPO. WILL REPORT TO AM RN WHEN AVAILABLE.
--- NOTE | 2023-04-11 11:05 | NUR ---
UPDATE / GONE TO ANGIO PT A&O X4. VSS. SPO2 > 92% ON RA. MONITOR SHOWING SR, HR 60s-80s. PT DENYING CP THIS AM, REPORTING NO CP SINCE APPLICATION OF NITROPASTE. PT THEN W/ CP RESUMING @ APPROX 0950 & PT SPO2 DECREASE TO 87% ON RA, 2L NC APPLIED. PT REPORTING WEARING 2L NC NEEDED AT HOME. PT REPORTING 4/10 CP, SL NITRO GIVEN PER EMAR W/ PT DENYING CP 5 MINUTES LATER, BUT THEN REPORTING RETURN OF CP & REPORTING PAIN INCREASE TO 6/10. 2ND NITRO GIVEN W/ PT DENYING PAIN 5 MINUTES LATER, BUT PAIN THEN RETURNING, STATING PAIN "COMING IN WAVES." 3RD NITRO GIVEN W/ PT THEN DENYING CP & DENYING RETURN OF CP. PT THEN TAKEN FOR ANGIOGRAM @ 1100.
--- NOTE | 2023-04-11 12:59 | NUR ---
POST ANGIOGRAM PT BROUGHT BACK TO FROM [facility] @ THIS TIME. PT W/ ATTEMPTED L RADIAL SITE W/ FOAM DRESSING IN PLACE, SITE WNL. R GROIN WNL W/ NO BLEEDING & NO HEMATOMA. PT EDUCATED ON POST ANGIO BEDREST MOBILITY PRECAUTIONS. PT A&O X4. VSS. SPO2 > 92% ON RA. MONITOR SHOWING NSR, HR 60s.
--- NOTE | 2023-04-11 18:52 | NUR ---
END OF SHIFT PT A&O X4. VSS. SPO2 > 92% ON RA OR 2L NC PRN THIS SHIFT. MONITOR SHOWING SB-SR, HR 50s-80s. PT L RADIAL & R GROIN ANGIO ACCESS SITES WNL W/ NO BLEEDING & NO HEMATOMA. NITRO PASTE IN PLACE. PT DENYING CP POST ANGIO. PT MEDICATED W/ PRN TYLENOL W/ PT REPORT OF CHRONIC BACK PAIN AGGRAVATED BY HAVING TO LAY FLAT POST ANGIOGRAM. PT DENYING IMPROVEMENT IN PAIN W/ PRN TYLENOL, BUT REPORTING IMPROVEMENT W/ REPOSITIONING ABLE W/ POST ANGIO MOBILITY RESTRICTIONS.
[2023-04-12 00:01] VITALS: BP 131/84
[2023-04-12 05:10] VITALS: BP 122/78
--- NOTE | 2023-04-12 05:20 | NUR ---
SHIFT SUMMARY PATIENT IS ALERT AND ORIENTED X4. 02 SATS >93%, DENIES SOB. HR SB-SR 50-60s BP STABLE. DENIES CP/PRESSURE. RIGHT GROIN SITE WNL. PATIENT SBA TO BATHROOM. NO ACUTE CHANGES THIS SHIFT. CALL LIGHT IN REACH.
--- NOTE | 2023-04-12 05:26 | NUR ---
IGNITION RISK ASESSED AT START OF SHIFT, PT STATES UNDERSTANDING AND NO RISK AT THIS TIME
[2023-04-12 07:14] VITALS: BP 121/79
[2023-04-12] MEDS ORDERED: FAMO20 PO (10:38)
[2023-04-12] MEDS ORDERED: ONDA4 PO (10:39)
[2023-04-12] MEDS ORDERED: Acetaminophen650 M1 PO (10:41)
[2023-04-12] MEDS ORDERED: LORA10ER PO (10:42)
[2023-04-12 11:06] VITALS: BP 135/89
[2023-04-12 11:14] VITALS: BP 135/92
--- NOTE | 2023-04-12 11:38 | NUR ---
CP & DIZZINESS PT REPORTING "LIGHT, TWINGY" CP WHILE LAYING IN BED. PT RATING SENSATION 1/10. PT UP TO BATHROOM W/ PAIN THEN GONE. PT STATING "TWINGING" ONLY LASTING 30 SECONDS WHEN IT COMES. PT THEN AMBULATING IN HALLWAY & STATED "WHOA, I NEED TO STOP. I FEEL DIZZY." PT ASSISTED INTO CHAIR & THEN WHEELCHAIR BACK TO . [facility]. SPO2 > 92% ON RA. TELEMETRY UNCHANGED. PT IN CHAIR, THEN BENDING OVER, CLUTCHING FIST OVER CHEST, STATING PAIN IS STILL "LIGHT" BUT NOW RATING PAIN 2/10. OVER THE NEXT FEW MINUTES OF CP COMING & GOING, PT STATING PAIN GOT HIGH "5 OR 6" BUT "PAIN IS GONE NOW." SPO2 > 92% ON RA, BUT 2L NC APPLIED FOR PT COMFORT. MD PASCUAL UPDATED W/ INSTRUCTION TO ATTEMPT WALKING PT AGAIN AT LATER TIME W/ OXYGEN ON & MONITOR FOR FURTHER CP OR DIZZINESS.
--- NOTE | 2023-04-12 12:52 | NUR ---
UPDATE PT UP TO BATHROOM WEARING OXYGEN. PT REPORT 01/07 CP W/ GETTING UP TO BATHROOM & CP RELIEVED WHEN BACK IN BED RESTING APPROX 5 MIN LATER. MD PASCUAL UPDATED W/ ORDER FOR RESUMING NITRO PASTE.
[2023-04-12] MEDS ORDERED: NITROGLYCERIN TOP (15:19)
--- NOTE | 2023-04-12 18:10 | NUR ---
DISCHARGE HOME PT A&O X4. VSS. SPO2 > 92% ON 2L NC. MONITOR SHOWING NSR. PT DENYING FURTHER CP AFTER RESUMING NITRO PASTE. PT TOLERATING AMBULATING TO BATHROOM & BACK TO BED W/ OUT CP. PT REPORTING SOME DIZZINESS W/ GETTING UP, BUT DIZZINESS RESOLVING. PT EXPRESSING READINESS TO DISCHARGE HOME TO THIS RN & MD AT BEDSIDE. W/ TOMAS FOR DISCHARGE HOME. PT UP IN RM W/ OUT CP OR DIZZINESS. DISCHARGE INSTRUCTIONS REVIEWED & SENT HOME W/ PT. PIV REMOVED. PT TAKEN OUT IN WHEELCHAIR W/ BELONGINGS @ APPROX 1600.
== END 2023-04-12 16:25 | disposition home or self-care (01) | DRG 287 ==
LOC: ER 10:08 → PCU 13:16 → ER 13:16 → PCU 13:16 → ER 04-08 15:47 → PCU 04-08 15:48
PROVIDERS: Emergency Medicine; ADMIT Internal Medicine
PROC: 0DH67UZ Insertion of Feeding Device into Stomach, Via Natural or Artificial Opening (ICD-10-PCS; 2023-04-10)
PROC: B2111ZZ Fluoroscopy of Multiple Coronary Arteries using Low Osmolar Contrast (ICD-10-PCS; principal; 2023-04-11)
PROC: 4A023N7 Measurement of Cardiac Sampling and Pressure, Left Heart, Percutaneous Approach (ICD-10-PCS; 2023-04-11)
PROC: B241ZZZ Ultrasonography of Multiple Coronary Arteries (ICD-10-PCS; 2023-04-11)
PROC: B2181ZZ Fluoroscopy of Left Internal Mammary Bypass Graft using Low Osmolar Contrast (ICD-10-PCS; 2023-04-11)
PROC: B21F1ZZ Fluoroscopy of Other Bypass Graft using Low Osmolar Contrast (ICD-10-PCS; 2023-04-11)
DX: T82.855A Stenosis of coronary artery stent, initial encounter (principal); I25.110 Atherosclerotic heart disease of native coronary artery with unstable angina pectoris; J96.11 Chronic respiratory failure with hypoxia; E03.9 Hypothyroidism, unspecified; I12.9 Hypertensive chronic kidney disease with stage 1 through stage 4 chronic kidney disease, or unspecified chronic kidney disease; N18.30 Chronic kidney disease, stage 3 unspecified; K44.9 Diaphragmatic hernia without obstruction or gangrene; J44.9 Chronic obstructive pulmonary disease, unspecified; M79.7 Fibromyalgia; E66.9 Obesity, unspecified; Z86.711 Personal history of pulmonary embolism; Z95.5 Presence of coronary angioplasty implant and graft; I25.2 Old myocardial infarction; Z88.2 Allergy status to sulfonamides; Z88.5 Allergy status to narcotic agent; Z88.1 Allergy status to other antibiotic agents; Z88.8 Allergy status to other drugs, medicaments and biological substances; Z79.82 Long term (current) use of aspirin; Z79.51 Long term (current) use of inhaled steroids; Z79.890 Hormone replacement therapy; Z79.01 Long term (current) use of anticoagulants; Z79.2 Long term (current) use of antibiotics; Z87.440 Personal history of urinary (tract) infections; Z87.442 Personal history of urinary calculi; Z86.73 Personal history of transient ischemic attack (TIA), and cerebral infarction without residual deficits; Z87.19 Personal history of other diseases of the digestive system; Z90.49 Acquired absence of other specified parts of digestive tract; Z90.710 Acquired absence of both cervix and uterus; Z95.1 Presence of aortocoronary bypass graft; Z98.890 Other specified postprocedural states; Z87.81 Personal history of (healed) traumatic fracture; Z90.89 Acquired absence of other organs; Z68.25 Body mass index [BMI] 25.0-25.9, adult
CPT/HCPCS: 36415; 71045; 71260; 76937; 78452; 80053; 80061; 82947; 83036; 83735; 84443; 84484; 85025; 85027; 85379; 85651; 86140; 93005; 93010; 93017; 93455; 94640; 94664; 94760; 94762; 96372; 96374; 96375; 99152; 99153; 99285-25; A9270; A9500; C1769; C1894; G0378; J0280; J1644; J1650; J2250; J2270; J2405; J2785; J3010; J7030; J7050; Q9967